=== PATIENT | female | born 1930 | race Caucasian/White ===

== ENCOUNTER 2018-08-15 16:40 | Inpatient (IN) ==
[2018-08-15] MEDS: HydrALAZINE HCL 20 MG/ML VIAL IV PRN ×2 (18:07→20:35)
[2018-08-15 18:16] LABS: Basophils # (auto) 0.07 K/uL (0-0.2); Basophils % (auto) 0.7 %; Eosinophils # (auto) 2.01 K/uL (0-0.5); Hematocrit (blood only) 40.3 % (37-47); Hemoglobin 13.1 g/dL (12.0-16.0); Immature Granulocytes # (auto) 0.03 K/uL (0.00-0.02); Immature Granulocytes % (auto) 0.3 %; Lymphocytes # (auto) 2.04 K/uL (1.2-3.4); Lymphocytes % (auto) 20.3 %; Mean Corpuscular Hgb Conc 32.5 g/dL (32-36); Mean Corpuscular Volume 92.2 fL (80-100); Monocytes # (auto) 0.68 K/uL (0.11-0.59); Monocytes % (auto) 6.8 %; Neutrophils # (auto) 5.22 K/uL (1.4-6.5); Neutrophils % (auto) 51.9 %; Platelet Count 273 K/uL (130-400); RDW Coefficient of Variation 14.3 % (11.5-14.5); Red Blood Count 4.37 M/uL (4.2-5.4); White Blood Count 10.05 K/uL (4.8-10.8)
[2018-08-15 18:21] LABS: iSTAT Hemoglobin 13.9 g/dl (12.0-16.0); iSTAT Ionized Calcium 1.24 mmol/l (1.12-1.32); iSTAT Potassium 3.9 mEq/L (3.3-5.0)
[2018-08-15 18:21] LABS: Appearance Urine Clear (Clear); Bilirubin Urine Negative (Negative); Blood Urine Negative (Negative); Color Urine Yellow; Glucose Urine UA Negative (Negative); Ketones Urine Negative (Negative); Leukocyte Esterase Urine Negative (Negative); Nitrite Urine Negative (Negative); Protein Urine Negative (Negative); Specific Gravity Urine 1.017 (1.000-1.030); Urobilinogen Urine Negative (Negative)
[2018-08-15] MEDS ORDERED: OPTIRAY 320 125ml IV PRN (18:24)
[2018-08-15 18:25] LABS: INR 1.1 (0.9-1.1); Partial Thromboplastin Time 27.5 Seconds (21.0-31.0); Prothrombin Time 10.9 Seconds (9.0-12.0)
[2018-08-15 18:28] LABS: Alanine Aminotransferase 24 U/L (12-78); Albumin Level 3.3 gm/dl (3.4-5.0); Aspartate Aminotransferase 18 U/L (15-37); BUN Creatinine Ratio 23.9 (10-20); Blood Urea Nitrogen 23 mg/dl (7-18); Calcium 9.5 mg/dl (8.5-10.1); Carbon Dioxide 30 mmol/L (21-32); Chloride 101 mmol/L (98-107); Creatinine Clr Calc Pharmacy 40.4 ml/min; Est GFR (African American) 60.9; Est GFR (Non-African American) 52.5; Glucose 79 mg/dl (70-99); Potassium 3.8 mmol/L (3.5-5.1); Sodium 137 mmol/L (136-145)
[2018-08-15 18:33] LABS: Albumin Globulin Ratio 0.7 (0.9-2); Alkaline Phosphatase 95 U/L (45-117); Bilirubin,Total 0.7 mg/dl (0.2-1); Creatine Kinase MB 3.6 ng/ml (0.5-3.6); Globulin 4.8 gm/dl (2.5-4.0); Total Protein 8.1 gm/dl (6.4-8.2); Troponin I < 0.015 ng/ml (0-0.045)
--- NOTE | 2018-08-15 18:34 | CT Scan Report ---
CT head/brain wo con CLINICAL HISTORY: 88 years-old Female with Stroke evaluation . Acute strokelike symptoms TECHNIQUE: Multiple axial CT images of the head were obtained without contrast. A dose lowering tech nique was utilized adhering to the principles of ALARA. CT DOSE: 638.56 mGycm COMPARISON: CT head 05/28/2014. FINDINGS: No acute intracranial hemorrhage, midline shift, intracranial mass, hydrocephalus, territorial ischem ia or abnormal extra-axial collection. Age-related involutional changes with moderate to extensive wh ite matter hypodensities suggestive of chronic microvascular ischemic changes. Mild encephalomalacia about the right gracia radiata and external capsule distribution is new from comparison suggesting re mote infarction. The calvarium is intact. Mastoid air cells are clear. Moderate to severe mucosal thickening about th e visualized left maxillary sinus with moderate mucosal thickening of the ethmoid air cells. Soft tis sues and orbits appear unremarkable. IMPRESSION: No acute intracranial abnormality. The above report was generated using voice recognition software. It may contain grammatical, syntax o r spelling errors. Electronically signed by: Ferny Montero M.D. 08/15/2018 6:32 PM
--- NOTE | 2018-08-15 18:42 | CT Scan Report ---
CT angio head w con CLINICAL HISTORY: 88 years-old Female with Pt c/o double vision. Acutely altered mental status COMPARISON STUDY: CT head of same day TECHNIQUE: Following the IV administration of 115 cc of Optiray 320, CT angiogram of the brain was pe rformed from the skull base to the vertex. Images are reviewed in the axial, sagittal, and coronal pl anes. 3-D MIPS images are created and assessed. IV contrast was administered without complication. A ll measurements were obtained according to NASCET criteria. A dose lowering technique was utilized ad ashtyn to the principles of ALARA. CT DOSE: 279.95 mGycm FINDINGS: CT ANGIOGRAM OF THE BRAIN: The imaged bilateral internal carotid arteries are patent. Moderate to severe calcified plaque about the cavernous, clinoid and supraclinoid segments. Additionally, calcified plaque about the left carot id terminus, image 46 series 2 results in approximately 60% luminal narrowing. The bilateral anterior and middle cerebral arteries are also patent. The vertebrobasilar system and posterior cerebral steven leyla are widely patent. Calcified plaque about the V4 segment left vertebral artery on image 12 serie s 2 results in less than 50% luminal narrowing. There is no aneurysm, high-grade stenosis, or proxima l branch occlusion identified. Dural sinuses appear patent. Paranasal sinus disease redemonstrated. IMPRESSION: 1. No aneurysm, dissection, or proximal branch occlusion. 2. Moderate to severe calcified plaque about the distal internal carotid arteries. Calcified plaque a t the left carotid terminus results in approximately 60% luminal narrowing. The above report was generated using voice recognition software. It may contain grammatical, syntax o r spelling errors. Electronically signed by: Ferny Montero M.D. 08/15/2018 6:41 PM
[2018-08-15] MEDS ORDERED: ASPIRIN CHEW 324 MG PO STA (19:02)
--- NOTE | 2018-08-15 20:26 | History & Physical Report ---
Date of Service August 15, 2018 Assessment & Plan (1) Confusion: Pt with hx stroke 2013, hx carotid stenosis, HTN, HLD. Earlier this morning around 4:30 AM patient with difficulty reading and comprehending which resolved and no recurrent symptoms. Hx echo: 08/2017: EF: 55-59%, grade 1 diastolic dysfunction, aortic valve mildly calcified, mild aortic valve stenosis, mild tricuspid regurgitation. History carotid Doppler 08/2017: Right carotid artery: 50-69% stenosis, left carotid artery: 69% stenosis In ER pt afebrile, P: 72, R: 18, BP: 223/98, 97% on RA. EKG: sinus rhythm. Negative troponin. Renal functions at baseline. CTA HEAD:. No aneurysm, dissection, or proximal branch occlusion. Moderate to severe calcified plaque about the distal internal carotid arteries. Calcified plaque at the left carotid terminus results in approximately 60% luminal narrowing. R/O TIA vs Stroke -Tele to monitor for arrhythmias -EKG in am -Trend troponin -Lipids, A1c in am -MRI brain -U/S carotids -Echo -aspiration precautions -PT/OT consult -continue statin, ASA -neurology consult, appreciate recommendations (2) Hypertensive urgency: Pt with hx HTN BP: 223/98 down to 178/91 in ER after hydralazine 10mg IV -hydralazine prn HTN -continue metoprolol (3) Hyperlipidemia: -lipid panel in am -continue statin (4) CKD (chronic kidney disease), stage III: Cr: 0.9. Baseline Cr: ~1.2 -monitor renal functions -avoid nephrotoxic agents when possible DVT Prophylaxis -Heparin SQ Full Code as per discussion with pt and son Follows with Dr Arevalo for routine care Pt was seen with Dr Ramirez. See addendum History of Present Illness Chief Complaint: Confusion Primary Care Provider: Kaylynn Arevalo Pt is 88 y/o F with PMH HTN, dyslipidemia, CKD III, basal cell CA, carotid stenosis, CVA in 2013 presented to ER with c/o confusion this morning. Pt states wasn't able to sleep this morning and she woke up and started reading around 4:30 am. As she was reading had onset of trouble comprehending the words and reports wasn't able to read as it confused her. She states stopped and tried to rest and then tried reading again with same symptoms. Pt states she eventually fell asleep and woke up with resolution of symptoms. No further symptoms. She was by herself, so is unsure of any speech problems. She denies any WARE, blurred vision, diplopia, vision loss, dizziness, weakness, paresthesias. Pt states for past 1.5 weeks with non-productive cough, post nasal drip. She was taking Mucinex with some relief. Denies SOB, CP, fever/chills. Patient with reported history memory problems and last year started Namenda. Patient states stopped taking it. Patient admits has been missing medications over the past month or so secondary to illness and recent of her . Patient lives on lower [facility]. Son states that he has noticed some recent increased confusion with patient and her medications and is looking into having pt use a pill box and reports is willing to start helping pt with her medications. Denies diaphoresis, N/V/D/C, syncope, neck pain, CP, SOB, orthopnea, palpitations, sore throat, choking, otalgia, abdominal pain, paresthesias, extremity weakness, extremity edema, rashes, urinary symptoms. Hx echo: 08/2017: EF: 55-59%, grade 1 diastolic dysfunction, aortic valve mildly calcified, mild aortic valve stenosis, mild tricuspid regurgitation. History carotid Doppler 08/2017: Right carotid artery: 50-69% stenosis, left carotid artery: 69% stenosis Allergies Allergy/AdvReac Type Severity Reaction Status Date / Time No Known Allergies Allergy Unverified 08/15/18 18:11 Home Medications Home Medications Medication Instructions Recorded Confirmed Type aspirin [Aspirin Low Dose] 81 mg PO BID 08/15/18 08/15/18 History calcium carbonate-vitamin D3 1 tab PO DAILY 08/15/18 08/15/18 History [Calcium 600 + D(3)] lovastatin 40 mg PO QPM 08/15/18 08/15/18 History metoprolol succinate 25 mg PO QAM 08/15/18 08/15/18 History Past Med/Surg History Medical History Basal cell carcinoma (Resolved) Lyme disease (Resolved) CKD (chronic kidney disease), stage III (Chronic) HTN (hypertension) (Chronic) Carotid bruit (Chronic) Hyperlipidemia (Chronic) Carotid stenosis, bilateral (Chronic) Stroke (Chronic 05/29/14) Hx TIA/stroke w/o resid Headache (Resolved) Social History Preferred Language: [place] Communication Ability: Impaired Communication Ability Comment: [place], does not have h/a Furnace Tender Required: No Beliefs That Will Affect Care: Scientology marital status: / Current Living Situation: Family Current Living Situation Comment: alone in-law suite in son's home ([place]) current occupational status: retired Other Information That Helps Us Care for You: No Feels Safe at Home: Yes Safety Concerns: Feels Safe At This Time Smoking Status: Never smoker Hx Alcohol Use: Yes Hx Substance Use: No Review of Systems All systems reviewed & are unremarkable except as noted in HPI & below Physical Exam Vital Signs (Past 24 Hours): Last Vital Signs Temp 36.5 C 08/15/18 16:45 Pulse 75 08/15/18 19:53 Resp 24 08/15/18 19:53 BP 178/91 H 08/15/18 19:53 Pulse Ox 96 08/15/18 19:53 Physical Exam: General: no distress, WDWN Head: normocephalic, atraumatic Eyes: PERRL, EOM's intact, conjunctiva non-injected, anicteric ENT: normal inspection external ears, nose, mucous membranes moist Neck: supple, trachea midline Lungs: clear, no respiratory distress, no wheezing/rhonchi/rales CV: RRR, no murmur, no JVD, no pretibial edema Abd: normal BS, soft, non-tender Ext: no cyanosis, no calf tenderness Neuro: A&O to person, place, year, no focal deficits noted, tongue midline, no pronator drift, strength equal bilaterally, normal affect Skin: warm, dry Results & Data Laboratory Results Short CBC 08/15/18 Range/Units 17:55 WBC 10.05 (4.8-10.8) K/uL Hgb 13.1 (12.0-16.0) g/dL Hct 40.3 (37-47) % Plt Count 273 (130-400) K/uL BMP 08/15/18 17:55 Sodium 137 Potassium 3.8 Chloride 101 Carbon Dioxide 30 BUN 23 H Creatinine 0.97 Glucose 79 Calcium 9.5 Cardiac Enzymes 08/15/18 Range/Units 17:55 CK-MB (CK-2) 3.6 (0.5-3.6) ng/ml Troponin I < 0.015 (0-0.045) ng/ml Liver Function 08/15/18 Range/Units 17:55 Total Bilirubin 0.7 (0.2-1) mg/dl AST 18 (15-37) U/L ALT 24 (12-78) U/L Alkaline Phosphatase 95 (45-117) U/L Albumin 3.3 L (3.4-5.0) gm/dl Urine 08/15/18 Range/Units 17:55 Urine Color Yellow Urine Appearance Clear (Clear) Urine pH 7.0 (4.5-7.5) Ur Specific [place] 1.017 (1.000-1.030) Urine Protein Negative (Negative) Urine Glucose (UA) Negative (Negative) Diagnostic Findings CT HEAD: IMPRESSION: No acute intracranial abnormality. CTA HEAD: IMPRESSION: 1. No aneurysm, dissection, or proximal branch occlusion. 2. Moderate to severe calcified plaque about the distal internal carotid arteries. Calcified plaque at the left carotid terminus results in approximately 60% luminal narrowing. ECG Rate (beats per minute): 60 Rhythm: normal sinus Supervising Physician Co-Signing Physician Notes Attending Addendum: The patient was seen and examined She is an 88 y/o F with PMH HTN, dyslipidemia, CKD III, basal cell CA, carotid stenosis, CVA in 2013 presented to ER with c/o confusion this morning. 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
--- NOTE | 2018-08-15 22:47 | XRay Report ---
XR chest 2V routine HISTORY: 88 years-old Female cough acute cough COMPARISON: None available TECHNIQUE: AP and lateral views of the chest FINDINGS: Cardiac silhouette is enlarged. Mitral annular calcifications and aortic calcifications are noted. Th ere is no pneumothorax or large pleural effusion. No overt pulmonary edema. Mild interstitial coarsen ing with mild hyperinflation. 7 mm nodular opacity projects over the right upper lung. Degenerative c hanges of the shoulders and spine. IMPRESSION: 1. Cardiomegaly without overt pulmonary edema. 2. Hyperinflation with mild interstitial coarsening, possibly chronic. 3. No focal airspace consolidation typical for pneumonia. 4. 7 mm indeterminate nodular focus of the right upper lung. This finding could be correlated with a nonemergent CT of the chest to further evaluate. The above report was generated using voice recognition software. It may contain grammatical, syntax o r spelling errors. Electronically signed by: Ferny Montero M.D. 08/15/2018 10:46 PM
[2018-08-15] MEDS ORDERED: HydrALAZINE HCL 20 MG/ML VIAL IV PRN (23:04)
[2018-08-15] MEDS ORDERED: ACETAMINOPHEN 325 MG TAB PO PRN (23:04)
[2018-08-15] MEDS ORDERED: PHARMACIST DISCHARGE MED REC CONSULT PRN (23:04)
[2018-08-16] MEDS: HEPARIN SOD 5,000 UNIT/0.5 ML VIAL SQ SCH ×3 (00:09→21:08)
[2018-08-16] MEDS: LOVASTATIN 20 MG TAB PO SCH ×2 (00:09→21:09)
--- NOTE | 2018-08-16 06:25 | Ultrasound Report ---
US carotid doppler BI HISTORY: Mental status change ?TIA COMPARISON: 05/30/2014 TECHNIQUE: Real-time, grayscale, and color Doppler sonography of the carotid arteries was performed. Imaging reviewed in the transverse and longitudinal planes. All measurements were calculated based on NASCET criteria. FINDINGS: Antegrade flow is seen in the bilateral vertebral arteries. The brachial pressures are hemodynamically similar. Extensive plaque formation bilaterally. The peak systolic velocity within the right ICA is 167. The right systolic ratio is 1.6. The peak systolic velocity within the left ICA is D 69. The left systolic ratio is 3.1. IMPRESSION: 1. 70-80% stenosis of the carotid bifurcations bilaterally. 2. 60-70% stenosis origin left internal carotid artery. 3. 50-60% stenosis right internal carotid artery at its origin. 4. These findings are mildly progressive from the prior study. The above report was generated using voice recognition software. It may contain grammatical, syntax or spelling errors. Electronically signed by: Andrea Garland M.D. 08/16/2018 6:24 AM
[2018-08-16 06:51] LABS: Basophils # (auto) 0.07 K/uL (0-0.2); Basophils % (auto) 0.8 %; Eosinophils % (auto) 24.9 %; Hematocrit (blood only) 39.1 % (37-47); Hemoglobin 12.6 g/dL (12.0-16.0); Immature Granulocytes # (auto) 0.03 K/uL (0.00-0.02); Immature Granulocytes % (auto) 0.3 %; Lymphocytes # (auto) 1.88 K/uL (1.2-3.4); Lymphocytes % (auto) 21.3 %; Mean Corpuscular Hgb Conc 32.2 g/dL (32-36); Mean Corpuscular Volume 91.8 fL (80-100); Mean Platelet Volume 10.7 fL (7.4-10.4); Monocytes # (auto) 0.81 K/uL (0.11-0.59); Monocytes % (auto) 9.2 %; Neutrophils # (auto) 3.85 K/uL (1.4-6.5); Neutrophils % (auto) 43.5 %; Platelet Count 241 K/uL (130-400); RDW Coefficient of Variation 14.5 % (11.5-14.5); Red Blood Count 4.26 M/uL (4.2-5.4); White Blood Count 8.84 K/uL (4.8-10.8)
[2018-08-16 07:11] LABS: Estimated Average Glucose 131 mg/dl; Hemoglobin A1C 6.2 % (4.5-5.6)
[2018-08-16 07:32] LABS: BUN Creatinine Ratio 19.8 (10-20); Calcium 8.8 mg/dl (8.5-10.1); Creatinine Clr Calc Pharmacy 40.8 ml/min; Est GFR (African American) 62.4; Est GFR (Non-African American) 53.9; Potassium 3.7 mmol/L (3.5-5.1)
[2018-08-16] MEDS: METOPROLOL SUCC 25MG EXT REL TAB PO SCH (08:09)
[2018-08-16] MEDS: ASPIRIN 81 MG ECTAB PO SCH (08:09)
--- NOTE | 2018-08-16 10:07 | Progress Note ---
DATE: 08/16/2018 REASON FOR CONSULTATION: Possible transient ischemic attack. HISTORY OF PRESENT ILLNESS: An 88-year-old right-handed female with a history of hypertension, dyslipidemia, chronic kidney disease, basal cell carcinoma, carotid stenosis, left frontal stroke in 2013, presented to the ER on the morning of admission. She was unable to sleep overnight, woke up and started to reach, she found that, although she was awake and alert and could see and her vision was not distorted, she could not read the written word. She had difficulty comprehending it. She stopped to pray for several minutes and it resolved. Upon awakening in the morning, she noted the symptoms to her children who brought her into the hospital. She absolutely denied any other symptoms. There was no headache. There was no scintillating visual phenomenon or field cut. No facial or limb anesthesia. No speech or language dysfunction. She had no chest pain, palpitation, shortness of breath. Many of her family members have had a low-level cough for several weeks. She has reported the same. Remotely, the patient had been on Namenda. None of her medicines recently were new or changed in dose. Her within the last several weeks, so she has been under significant stressors. There is some report of some mild confusion, but not on the day of admission. Several weeks prior to the stroke, the patient fell after tripping on a piece of carpet. REVIEW OF SYSTEMS: As per primary care is reviewed. PAST MEDICAL HISTORY: As above. She has also had Lyme disease, carotid stenosis. PAST SURGICAL HISTORY: Basal cell carcinoma. SOCIAL HISTORY: Nonsmoker, nondrinker. She lives with her son. FAMILY HISTORY: There is no family history of stroke. HOME MEDICATIONS: Aspirin, calcium, lovastatin and metoprolol. LABORATORY DATA: White count 8.8, H and H 12.6/39.1, platelet count 241. PT 10.9, PTT 27.5. Chemistry profile notable for a BUN of 19, hemoglobin A1c of 6.2. LDL cholesterol 95. Urinalysis negative. Electrocardiogram normal sinus rhythm. Carotid ultrasound, 70-80% stenosis of the carotid bifurcations bilaterally, 60-70% in the origin of the left internal carotid, 50-69% of the right internal carotid. These are mildly progressive compared to a prior study. A CTA of the head shows moderate severe calcific plaque in the distal internal carotids, calcific plaque in the left carotid terminus results in approximately 60% luminal narrowing. CT of the neck was not performed. CT of the head shows white-matter hypodensities consistent with chronic microvascular changes. There is mild encephalomalacia of the right gracia radiata and external capsule distribution is new from comparison suggesting remote infarction. PHYSICAL EXAMINATION: VITAL SIGNS: Blood pressure 151/74, pulse 68, respirations 18, 36.9, O2 sat 95%. GENERAL: On exam, the patient is awake, alert, oriented x3. There is no right/left confusion. There is no alexia or agraphia. There is no aphasia. The patient follows a 3-step command. Memory is 3/3 at 3 minutes. HEART: There are no carotid bruits. No heart murmurs. Heart is regular. NEUROLOGIC: Pupils are equal. Optic nerves are grossly normal with normal jones, motility, facial symmetry, facial sensation. Speech and language are normal. Motor 5/5, no drift. Normal rapid alternating movement. Symmetric reflexes. Downgoing toes. [id number] and [id number] are normal. Her gait is very marginally shuffling, but appropriate for age. IMPRESSION: The patient with a history of prior left frontal infarction, now with what sounds like alexia which is localizes to the left hemisphere. This raises the question whether the left carotid stenosis could be symptomatic. PLAN: At present, add Plavix to aspirin. Optimize LDL, CTA of the head 24 hours after a CTA of the [place] of [place], MRI of the brain to see if we localize any ischemia to the left hemisphere. This is all ultimately important and determining whether or not the patient needs a left carotid endarterectomy. 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 The patient understands and I was able to answer all questions for her. I will see her in the morning.
[2018-08-16] MEDS ORDERED: OPTIRAY 320 125ml IV PRN (10:38)
--- NOTE | 2018-08-16 10:51 | CT Scan Report ---
CT angio neck with con HISTORY: Carotid stenosis assess degree of stenosis LIca, TECHNIQUE: Multiaxial CT angiography of the neck was performed 100 cc IV contrast: None. All measu rements were calculated based on NASCET criteria. Maximum intensity projection images were also obta ined. A dose lowering technique was utilized adhering to the principles of ALARA. COMPARISON STUDY: None. FINDINGS: The aortic arch and proximal great vessels are widely patent. Scattered plaque dimension o f the vertebral basilar system. No significant stenotic process. Extensive plaque formation of the ca rotid system bilaterally. 70-80% stenosis of the right carotid bifurcation. High-grade stenosis proxi mal right internal carotid artery. This is estimated at 85%. Dense calcification left carotid bifurcation. 80% stenosis left bifurcation. 85% stenosis origin left internal carotid artery. IMPRESSION: 1. 85% stenosis left internal carotid artery.. 2. 80% stenosis left carotid bifurcation. 3. 85% stenosis origin right internal carotid artery. 4. 80% stenosis right carotid bifurcation. 5. Incidental note is made of nodularity involving the pulmonary apices bilaterally combined with sup erior mediastinal adenopathy. 6. Additional moderate adenopathy involving the cervical chains bilaterally. 7. A neoplastic process must be considered with probable associated pathologic adenopathy. The above report was generated using voice recognition software. It may contain grammatical, syntax or spelling errors. Electronically signed by: Andrea Garland M.D. 08/16/2018 10:48 AM
[2018-08-16] MEDS ORDERED: GADOBUTROL 30ML VIAL IV PRN (11:20)
[2018-08-16] MEDS: CLOPIDOGREL BISULFATE 75 MG TAB PO SCH ×2 (11:42→11:52)
--- NOTE | 2018-08-16 11:42 | Magnetic Resonance Report ---
MR brain wo/w con CLINICAL HISTORY: ?TIA mental status change COMPARISON STUDY: 05/29/2014. TECHNIQUE: Utilizing a 1.5 Funmilayo magnet and dedicated coil, multiplanar, multiecho imaging of the br ain was performed pre and postcontrast administration. IV administration of 8.5 mL of Gadavist contr ast was uneventful. FINDINGS: Diffusion-weighted images are negative for an acute ischemic event. Examination otherwise c onfirms generalized cerebellar as well as cerebral atrophy. Moderate chronic small vessel changes francine ntified throughout. The ventricular system is midline. Postcontrast images confirm the presence of a meningioma superior to the right central cribriform plate. This measures 2.0 x 1.2 cm in maximum dimension. There is no s ignificant vasogenic edema. There are findings of left maxillary and ethmoid sinusitis. There is uniform enhancement of the meningioma. No additional foci of enhancement are seen. IMPRESSION: 1. No evidence for an acute ischemic event. 2. Atrophy and considerable chronic small vessel change. 3. Right central meningioma immediately superior to the cribriform plate measuring 2.0 x 1.2 cm. 4. Left maxillary and ethmoid sinusitis. The above report was generated using voice recognition software. It may contain grammatical, syntax or spelling errors. Electronically signed by: Andrea Garland M.D. 08/16/2018 11:41 AM
--- NOTE | 2018-08-16 15:07 | Hospitalist Progress Note ---
Date of Service August 16, 2018 Assessment & Plan (1) Confusion: Stroke like symptoms: H/O CVA in 2014 H/O carotid stenosis --MRI Brain: No evidence for an acute ischemic event. Atrophy and considerable chronic small vessel change. Right central meningioma immediately superior to the cribriform plate measuring 2.0 x 1.2 cm. Left maxillary and ethmoid sinusitis. --Neck CTA: 85% stenosis left internal carotid artery. 80% stenosis left carotid bifurcation. 85% stenosis origin right internal carotid artery. 80% stenosis right carotid bifurcation. Incidental note is made of nodularity involving the pulmonary apices bilaterally combined with superior mediastinal adenopathy. Additional moderate adenopathy involving the cervical chains bilaterally. A neoplastic process must be considered with probable associated pathologic adenopathy. --Head CTA: No aneurysm, dissection, or proximal branch occlusion. Moderate to severe calcified plaque about the distal internal carotid arteries. Calcified plaque at the left carotid terminus results in approximately 60% luminal narrowing. --ECHO: EF: 65-70%; base posterior wall mildly hypokinetic, Mild , Mild TR -- Continue Aspirin, statin --Plavix added-- Patient would like to discuss with family prior to taking it --May need endarterectomy --Appreciate Neurology Input --PT/OT, Specch eval Meningioma Mediastinal and Cervical Adenopathy Incidental findings on CT Check CT abd/Chest Needs biopsy to confirm Consider Oncology Consult Inpatient Vs Outpatient Wall motion abnormality on ECHO: Patient denies any chest pain/discomfort, SOB Initial Troponin Negative Trend Troponin Repeat EKG in AM Will discuss with Cardiology (2) Hypertensive urgency: BP improved continue metoprolol Hydralazine PRN (3) Hyperlipidemia: continue statin (4) CKD (chronic kidney disease), stage III: Baseline Cr: ~1.2 monitor renal functions avoid nephrotoxic agents when possible DVT Px: Heparin SQ Code Status Full Code Subjective Patient is seen and examined at bedside States having mild headache after returning from MRI Denies any change in vision, dizziness, chest pain, SOB, abd pain Patient has been refusing plavix No other complaints Physical Exam Vital Signs (Past 24 Hours): Last Vital Signs Temp 36.9 C 08/16/18 06:55 Pulse 64 08/16/18 08:00 Resp 18 08/16/18 06:55 BP 151/74 H 08/16/18 06:55 Pulse Ox 95 08/16/18 06:55 Physical Exam: Physical Exam: Vitals signs as noted above General Appearance:Moderately built and nourished, no apparent distress Head: normocephalic, Atraumatic Eyes: normal inspection, EOMI Neck: supple, Trachea midline Respiratory/Chest: Normal breath sounds, CTA Cardiovascular: S1, S2, + murmur Abdomen/GI:Soft, Non tender, Bowel sounds present Extremities/Musculoskelatal:normal inspection, no edema Neurologic/Psych:AAOX3, grossly no focal neurological deficits Skin: normal color, warm Results & Data Laboratory Results Short CBC 08/15/18 08/16/18 Range/Units 17:55 06:35 WBC 10.05 8.84 (4.8-10.8) K/uL Hgb 13.1 12.6 (12.0-16.0) g/dL Hct 40.3 39.1 (37-47) % Plt Count 273 241 (130-400) K/uL BMP 08/15/18 08/16/18 17:55 06:35 Sodium 137 139 Potassium 3.8 3.7 Chloride 101 105 Carbon Dioxide 30 28 BUN 23 H 19 H Creatinine 0.97 0.95 Glucose 79 92 Calcium 9.5 8.8 Cardiac Enzymes 08/15/18 Range/Units 17:55 CK-MB (CK-2) 3.6 (0.5-3.6) ng/ml Troponin I < 0.015 (0-0.045) ng/ml Liver Function 08/15/18 Range/Units 17:55 Total Bilirubin 0.7 (0.2-1) mg/dl AST 18 (15-37) U/L ALT 24 (12-78) U/L Alkaline Phosphatase 95 (45-117) U/L Albumin 3.3 L (3.4-5.0) gm/dl Urine 08/15/18 Range/Units 17:55 Urine Color Yellow Urine Appearance Clear (Clear) Urine pH 7.0 (4.5-7.5) Ur Specific Randolph 1.017 (1.000-1.030) Urine Protein Negative (Negative) Urine Glucose (UA) Negative (Negative)
[2018-08-16] MEDS: SODIUM CHLORIDE 0.9% 1000ML 1,000 ML IV SCH (17:19)
[2018-08-17 06:26] LABS: Basophils # (auto) 0.08 K/uL (0-0.2); Basophils % (auto) 0.9 %; Eosinophils # (auto) 2.33 K/uL (0-0.5); Eosinophils % (auto) 26.6 %; Hematocrit (blood only) 37.7 % (37-47); Hemoglobin 12.1 g/dL (12.0-16.0); Immature Granulocytes # (auto) 0.02 K/uL (0.00-0.02); Immature Granulocytes % (auto) 0.2 %; Lymphocytes # (auto) 2.42 K/uL (1.2-3.4); Lymphocytes % (auto) 27.6 %; Mean Corpuscular Hgb Conc 32.1 g/dL (32-36); Mean Corpuscular Volume 91.5 fL (80-100); Mean Platelet Volume 10.9 fL (7.4-10.4); Monocytes # (auto) 0.86 K/uL (0.11-0.59); Monocytes % (auto) 9.8 %; Neutrophils # (auto) 3.06 K/uL (1.4-6.5); Neutrophils % (auto) 34.9 %; Platelet Count 249 K/uL (130-400); RDW Coefficient of Variation 14.4 % (11.5-14.5); RDW Standard Deviation 48.5 fL (36.4-46.3); Red Blood Count 4.12 M/uL (4.2-5.4); White Blood Count 8.77 K/uL (4.8-10.8)
[2018-08-17 07:10] LABS: BUN Creatinine Ratio 23.9 (10-20); Calcium 8.8 mg/dl (8.5-10.1); Creatinine Clr Calc Pharmacy 44.3 ml/min; Est GFR (African American) 69.4; Est GFR (Non-African American) 59.9; Potassium 3.7 mmol/L (3.5-5.1)
[2018-08-17 07:15] LABS: Troponin I 0.02 ng/ml (0-0.045)
[2018-08-17] MEDS: CLOPIDOGREL BISULFATE 75 MG TAB PO SCH (08:07)
[2018-08-17] MEDS: ASPIRIN 81 MG ECTAB PO SCH (08:07)
[2018-08-17] MEDS: METOPROLOL SUCC 25MG EXT REL TAB PO SCH (08:07)
[2018-08-17] MEDS: HEPARIN SOD 5,000 UNIT/0.5 ML VIAL SQ SCH ×2 (08:08→20:44)
--- NOTE | 2018-08-17 08:42 | Cardiology Consultation ---
Date of Consultation August 17, 2018 Assessment & Plan (1) Chronic ischemic heart disease: Resting 2D transthoracic echocardiogram demonstrates a small basal posterior wall motion abnormality consistent with underlying ischemic heart disease. Her ejection fraction is preserved. No signs/symptoms of congestive heart failure. When prior 2D echocardiogram reviewed from 2013 there is no significant change. Patient notes chronic dyspnea on exertion without chest discomfort. Function capacity unchanged. Medical management recommended at this time. Continue beta-lorena. Lovastatin will be transitioned to high intensity statin therapy, atorvastatin 40 mg daily. Consider addition of RAYMUNDO inhibitor. Outpatient pharmacologic stress testing recommended for further risk stratification if patient planning carotid endarterectomy. (2) Confusion: Symptoms have resolved. Possible TIA vs. hypertensive urgency on admission. Blood pressure improved now within acceptable range. Appreciate neurology input. Further evaluation as per internal medicine and neurology. (3) Carotid stenosis, bilateral: Consider vascular surgeon consultation. (4) HTN (hypertension): Currently controlled. (5) Dyslipidemia, goal LDL below 100: Discontinue lovastatin in favor of high intensity statin therapy, atorvastatin 40 mg daily. (6) Cervical adenopathy: Internal medicine physician currently discussing results with oncology. (7) Aortic stenosis, mild: History of Present Illness Reason for Consultation: Abnormal resting 2D transthoracic echocardiogram suggesting basal posterior hypokinesis. Requesting Physician: Dr. Fabian Attending Physician: Arden Fabian MD History of Present Illness 88-year-old female presents with symptoms consistent with TIA. Patient developed cognitive difficulties yesterday. Unable to understand writing in the newspaper. Came to the ER for further evaluation. Initial testing demonstrates moderate to severe ( 80-85%)left internal carotid artery stenosis with moderate (80%) right internal carotid artery stenosis. A resting 2D transthoracic echocardiogram was performed demonstrating mild basal posterior hypokinesis. Patient denies chest discomfort. Notes chronic dyspnea on exertion for several years. Ambulates with use of a cane. No change in functional capacity recently. Carries a history of prior CVA. Most recent lipid panel demonstrates uncontrolled LDL 9159mg/dL). Taking lovastatin for years. No history of prior statin intolerance. Today the patient is feeling well. Denies focal weakness, slurred speech, visual changes, or cognitive difficulties. Family present at bedside. Patient denies orthopnea, PND, lower semi-edema, or claudication. Tolerating diet and medications. Offers no other concerns/complaints at this time. No dysrhythmias on telemetry. Allergies Allergy/AdvReac Type Severity Reaction Status Date / Time No Known Allergies Allergy Unverified 08/15/18 18:11 Home Medications Home Medications Medication Instructions Recorded Confirmed Type aspirin [Aspirin Low Dose] 81 mg PO BID 08/15/18 08/15/18 History calcium carbonate-vitamin D3 1 tab PO DAILY 08/15/18 08/15/18 History [Calcium 600 + D(3)] lovastatin 40 mg PO QPM 08/15/18 08/15/18 History metoprolol succinate 25 mg PO QAM 08/15/18 08/15/18 History Patient History Medical History Basal cell carcinoma (Resolved) Lyme disease (Resolved) CKD (chronic kidney disease), stage III (Chronic) HTN (hypertension) (Chronic) Carotid bruit (Chronic) Hyperlipidemia (Chronic) Carotid stenosis, bilateral (Chronic) Stroke (Chronic 05/29/14) Hx TIA/stroke w/o resid Headache (Resolved) Family History Other CAD (coronary artery disease) Social History Communication Ability: Effective Beliefs That Will Affect Care: Mandaeism marital status: / Current Living Situation: Family Current Living Situation Comment: alone in-law suite in son's home ([place]) current occupational status: retired Other Information That Helps Us Care for You: No Feels Safe at Home: Yes Safety Concerns: Feels Safe At This Time Smoking Status: Never smoker Hx Alcohol Use: Yes Hx Substance Use: No Review of Systems Pertinent positives noted per HPI, conference of 10 system review otherwise negative. Physical Exam Vital Signs (Past 24 Hours): Last Vital Signs Temp 36.5 C 08/17/18 07:58 Pulse 61 08/17/18 07:58 Resp 21 08/17/18 04:00 BP 152/67 H 08/17/18 07:58 Pulse Ox 97 08/17/18 07:58 Physical Exam: General: NAD, AAO x3, well nourished. Obese. HEENT: Normocephalic. Atraumatic. Conjunctiva pink, no scleral icterus. Neck:2/4 B/L carotid bruits, the carotid upstrokes are brisk. No JVD. No HJR Heart: Regular normal S-1 and S-2 no S-3 or S-4 gallop. 2/6 low pitched mid peaking systolic ejection murmur heard best at the right second intercostal space. PMI is not displaced. No RV heave. Lungs: Clear bilateral without rales , rhonchi, or wheeze. Abdomen: Normal bowel sounds. Mildly distended. Nontender. No masses or organomegaly. No abdominal bruits. Extremities: 1-2+ bilateral pedal and pretibial edema. No clubbing, cyanosis. Pulses: radial=2/4, Dorsalis pedis =2/4 , posterior tibial=2/4. Neuro: Cranial nerves grossly intact. No focal motor deficit.
[2018-08-17] MEDS: ATORVASTATIN 40 MG TAB PO SCH (09:37)
[2018-08-17] MEDS ORDERED: IOVERSOL 100ml IV PRN (11:09)
[2018-08-17] MEDS: SODIUM CHLORIDE 0.9% 1000ML 1,000 ML IV SCH (12:04)
--- NOTE | 2018-08-17 12:16 | Progress Note ---
DATE: 08/17/2018 SUBJECTIVE: Mrs. Daigle has not had any recurrent events overnight and generally feels well. OBJECTIVE: VITAL SIGNS: Examination, 152/67, 70, respirations 21, 36.5. GENERAL: She is awake and alert. NEUROLOGIC: There is normal speech and language. Normal visual jones, facial symmetry and symmetric upper and lower extremity strength. DATABASE: MRI of the brain shows no acute infarct. There are atrophy and considerable small vessel ischemic changes. There is a meningioma superior to the cribriform plate measuring 2.0 x 1.2 cm. It was not compared to a prior study of 2014, although I do not recall that was done with contrast. Carotid Doppler suggests a 70% stenosis of the carotids bilaterally, carotid bifurcations 70-80%, 60-70 at the origin of the left internal carotid, 50-60 at the origin of the right internal carotid. CTA of the neck showed 85% stenosis of the left internal carotid, 80% stenosis of the left carotid bifurcation, 85% stenosis at the origin of the right internal, 80% stenosis of the right carotid bifurcation. There is incidental finding of some mediastinal adenopathy as well as adenopathy in the cervical chains. CTA shows calcific plaque of the V4 segment of the left vertebral, resulting in less than 50% narrowing. No aneurysm or high-grade stenosis. The patient's EKG is a sinus rhythm. Echocardiogram showing the base posterior wall is mildly hypokinetic. There is mild enlargement of the left atrium. The labs of note include an LDL of 95. IMPRESSION: This patient had an episode of impaired reading lasting several minutes. This could be alexia. Alexia localizes to the dominant left posterior cerebral artery. However, her symptoms were vague and I think we cannot entirely localize to the left TELEPHONE MECHANIC based on her vague symptoms. Therefore, it is difficult to know if she is symptomatic for carotid stenosis or not. The TELEPHONE MECHANIC is a posterior circulation vessel and she does not have a origin, i.e., the TELEPHONE MECHANIC originates from the posterior circulation rather than the anterior circulation. It is therefore difficult to know if she is symptomatic for what appears to be fairly high-grade bilateral internal carotid stenosis. I would recommend aspirin and Plavix. I have discussed Plavix with the patient and she is in agreement at this point. Ongoing cardiac monitoring with a Zio patch since we cannot reliably localize the process, to rule out atrial fibrillation, vascular surgery consult knowing that this may be asymptomatic, but higher grade carotid stenosis. Whether or not she would be a surgical candidate will depend on the results of her CT of the chest and her cardiovascular risk factors. The patient has an asymptomatic cribriform plate meningioma, recommend followup MRI in 6 months and then yearly if stable, this is not the etiology of her symptoms. I discussed this with her son at length. We will follow him. HEMANTH
--- NOTE | 2018-08-17 13:52 | CT Scan Report ---
CHEST CT WITH CONTRAST; CT ABDOMEN/PELVIS WITH IV CONTRAST ONLY: CT DOSE: 547.89 mGy.cm HISTORY: Adenopathy of the cervical chains incidentally noted on comparison study. Today's study is a screening exam for possible malignancy. R/O Malignancy TECHNIQUE: Multiaxial CT images of the chest, abdomen and pelvis were performed following the intrave nous administration of contrast. A dose lowering technique was utilized adhering to the principles o f ALARA. COMPARISON: CTA neck 08/16/2018. FINDINGS: CT CHEST: The study is motion degraded. Thyroid is homogeneous. Mildly enlarged left axillary lymph node measur es 11 mm in short axis. Enlarged mediastinal and hilar lymph nodes include subcarinal adenopathy ludy uring up to 2.3 x 1.4 cm. Enlarged right hilar lymph nodes measure up to 2.3 x 1.4 cm. Left hilar lym ph nodes measure up to 1.4 x 2.2 cm. Heart is upper limits of normal in size without pericardial effu fabio. Coronary arterial, mitral and aortic annular calcifications are noted. Extensive mixed plaque f ormation about the thoracic aorta without aneurysm or dissection. Mixed plaque formation at the origi n of the right subclavian artery results in high-grade stenosis, image 59 series 4. The opacified pul monary arterial tree appears unremarkable. Respiratory motion limits evaluation of the lung parenchyma. Mild bilateral intralobular septal thick ening with bilateral bronchial wall thickening. Linear consolidation, patchy and linear consolidation about the left lung base, noted within the basal left lower lobe. Upper lung zone predominant irregu lar pulmonary nodules measure up to 8 mm. Biapical pleural-parenchymal scarring with pleural calcific ations. Mild bibasilar mucous plugging. Breast parenchyma and soft tissues are within normal limits. Degenerative changes of the shoulders an d spine. No suspicious lytic or blastic bony lesions identified. CT ABDOMEN/PELVIS: The study is motion degraded. No pneumatosis or pneumoperitoneum. Mildly contracted gallbladder. The liver, spleen, pancreas and adrenal glands appear unremarkable. Suggested cyst noted about the right kidney. No renal or ureteral calculi. Circumferential wall thickening of the bladder with partial dis tention. Uterus and adnexa demonstrate no acute abnormality. Extensive calcification about the abdomi nal aorta without aneurysm. Mildly enlarged bilateral iliac chain lymph nodes measure up to 10 mm. Nonspecific mild wall thickening about the distal esophagus. No bowel obstruction. Colonic diverticul osis without acute diverticulitis. Appendix appears normal. Diastases recti with small fat filled per iumbilical hernia, 1.3 cm diastases. Soft tissues are otherwise unremarkable. The bones demonstrate n o suspicious lytic or blastic bone lesions identified. Multilevel spondylitic spurring with facet art hropathy. Sclerotic lesion of the right pubic bone suggests bone island. Grade 1 anterolisthesis L4 o n L5, likely degenerative. Mild lumbar levoscoliosis. IMPRESSION: 1. Multiple enlarged lymph nodes about the chest, predominately in the mediastinal and hilar distribu tions, in addition to prominent periaortic and mildly enlarged iliac chain lymph nodes are concerning for underlying lymphoproliferative disorder. 2. Multiple irregular subcentimeter pulmonary nodules within an upper lung zone predominant distribut ion measuring up to approximately 8 mm are noted in addition to patchy left basilar consolidation and mild bilateral bronchial wall thickening. These findings are suggestive of an infectious or inflamma tory pneumonitis with metastatic disease not excluded. Attention at follow-up recommended. 3. No bowel obstruction or focal bowel wall thickening. 4. 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 5. Additional findings as above. Dictated: 08/17/2018 11:25 AM Transcribed: 08/17/2018 1:52 PM Courtney [id number] [id number] Electronically signed by: Ferny Montero M.D. 08/17/2018 1:59 PM
--- NOTE | 2018-08-17 14:13 | Hospitalist Progress Note ---
Date of Service August 17, 2018 Assessment & Plan (1) Confusion: Stroke like symptoms: Possible Alexia or 2/2 Carotid.A stenosis H/O CVA in 2013 H/O carotid stenosis --MRI Brain: No evidence for an acute ischemic event. Atrophy and considerable chronic small vessel change. Right central meningioma immediately superior to the cribriform plate measuring 2.0 x 1.2 cm. Left maxillary and ethmoid sinusitis. --Neck CTA: 85% stenosis left internal carotid artery. 80% stenosis left carotid bifurcation. 85% stenosis origin right internal carotid artery. 80% stenosis right carotid bifurcation. Incidental note is made of nodularity involving the pulmonary apices bilaterally combined with superior mediastinal adenopathy. Additional moderate adenopathy involving the cervical chains bilaterally. A neoplastic process must be considered with probable associated pathologic adenopathy. --Head CTA: No aneurysm, dissection, or proximal branch occlusion. Moderate to severe calcified plaque about the distal internal carotid arteries. Calcified plaque at the left carotid terminus results in approximately 60% luminal narrowing. --ECHO: EF: 65-70%; base posterior wall mildly hypokinetic, Mild , Mild TR -- Continue Aspirin, statin --Plavix added-- Patient refused --May need endarterectomy --Appreciate Neurology Input --PT/OT --Consulted Vascular Surgery for input Meningioma Mediastinal and Cervical Adenopathy Incidental findings on CT --CT chest/Abd:Multiple enlarged lymph nodes about the chest, predominately in the mediastinal and hilar distributions, in addition to prominent periaortic and mildly enlarged iliac chain lymph nodes are concerning for underlying lymphoproliferative disorder. Multiple irregular subcentimeter pulmonary nodules within an upper lung zone predominant distribution measuring up to approximately 8 mm are noted in addition to patchy left basilar consolidation and mild bilateral bronchial wall thickening. These findings are suggestive of an infectious or inflammatory pneumonitis with metastatic disease not excluded. Attention at follow-up recommended. 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 --Needs biopsy to confirm --Consider Oncology Consult Inpatient Vs Outpatient --Needs repeat MRI brain in 6 months --Started on Doxycycline for possible pneumonitis Chronic Ischemic Heart disease: Wall motion abnormality noted on ECHO Patient denies any chest pain/discomfort, SOB Troponin Negative EKG:no acute signs of Ischemia Appreciate Cardiology Input Continue Aspirin, Beta Yue Lovastatin changed to lipitor (2) Hypertensive urgency: continue metoprolol Hydralazine PRN (3) Hyperlipidemia: continue statin (4) CKD (chronic kidney disease), stage III: Baseline Cr: ~1.2 monitor renal functions avoid nephrotoxic agents when possible DVT Px: Heparin SQ Code Status Full Code Subjective Patient is seen and examined at bedside Feels better today Denies any recurrence of confusion, weakness, change in vision Also denies chest pain, SOB, dizziness No other complaints Discussed with family in detail Physical Exam Vital Signs (Past 24 Hours): Last Vital Signs Temp 36.5 C 08/17/18 07:58 Pulse 70 08/17/18 08:00 Resp 21 08/17/18 04:00 BP 152/67 H 08/17/18 07:58 Pulse Ox 97 08/17/18 07:58 Physical Exam: Physical Exam: Vitals signs as noted above General Appearance:Moderately built and nourished, no apparent distress Head: normocephalic, Atraumatic Eyes: normal inspection, EOMI Neck: supple, Trachea midline Respiratory/Chest: Normal breath sounds, CTA Cardiovascular: S1, S2, + murmur Abdomen/GI:Soft, Non tender, Bowel sounds present Extremities/Musculoskelatal:normal inspection, no edema Neurologic/Psych:AAOX3, grossly no focal neurological deficits Skin: normal color, warm
[2018-08-17] MEDS: DOXYCYCLINE HYCLATE 100 MG CAP PO SCH (16:14)
--- NOTE | 2018-08-18 01:16 | Emergency Department Note ---
Entered by Rosemarie Cole acting as a scribe for Dylan Verdin MD History of Present Illness General Chief complaint: TIA Symptoms Stated complaint: possible mini stroke Time Seen by Provider: 08/15/18 17:13 Source: patient and family History of Present Illness Onset (ago): hour(s) (12 hours ago) Location: head Pain Consistency: + other (episode) Quality: + other (stroke like symptoms) Associated symptoms: + denies other symptoms (difficulty walking) and + other (d ifficulty speaking, difficulty reading, congestion) The patient is an 88 year old female who presents to the Emergency Room with complaints of an episode of stroke like symptoms occurring 12 hours ago. The patient states that she has a history of TIAs and believes she has had another. She states that she was sleeping this morning and got up to read. She reports that when she started reading, she noticed suddenly that the words were jumbled and she couldn�t comprehend what she was reading. She states that she also noticed when she would try to speak it wouldn�t come out right. The patient states that she sat the book down and waited a few minutes before picking up the book and trying again. She states that this time everything seemed to have cleared up. The patient notes that she takes a baby Aspirin daily, but denies using any other blood thinners. The patient�s son notes that the patient has been taking cough syrup recently for congestion, but is unsure which one. The patient denies difficulty walking. Home Medications Home Medications Medication Instructions Recorded Confirmed Type aspirin [Aspirin Low Dose] 81 mg PO BID 08/15/18 08/15/18 History calcium carbonate-vitamin D3 1 tab PO DAILY 08/15/18 08/15/18 History [Calcium 600 + D(3)] lovastatin 40 mg PO QPM 08/15/18 08/15/18 History metoprolol succinate 25 mg PO QAM 08/15/18 08/15/18 History Allergies Allergy/AdvReac Type Severity Reaction Status Date / Time No Known Allergies Allergy Unverified 08/15/18 18:11 Past Med/Surg History Medical History Basal cell carcinoma (Resolved) Lyme disease (Resolved) CKD (chronic kidney disease), stage III (Chronic) HTN (hypertension) (Chronic) Carotid bruit (Chronic) Hyperlipidemia (Chronic) Carotid stenosis, bilateral (Chronic) Stroke (Chronic 05/29/14) Hx TIA/stroke w/o resid Headache (Resolved) Family History Other CAD (coronary artery disease) Social History Communication Ability: Effective Beliefs That Will Affect Care: Sabianism marital status: / Current Living Situation: Family Current Living Situation Comment: alone in-law suite in son's home ([place]) current occupational status: retired Other Information That Helps Us Care for You: No Feels Safe at Home: Yes Safety Concerns: Feels Safe At This Time Smoking Status: Never smoker Hx Alcohol Use: Yes Hx Substance Use: No Review of Systems See HPI for pertinent positives & negatives. and A total of 10 systems reviewed and were otherwise negative Physical Exam Vital Signs Vital Signs - 24 hr 08/17/18 01:43 08/17/18 04:00 08/17/18 07:58 Temperature 36.7 C 36.5 C Temperature Source Oral Oral Pulse Rate 68 Pulse Rate [Brachial] 69 61 Pulse Rate [Right Finger] Respiratory Rate 21 Blood Pressure [Left Arm] 125/63 Blood Pressure [Right Arm] 152/67 H Blood Pressure Mean [Left Arm] 83 Blood Pressure Mean [Right Arm] 95 Blood Pressure Position [Left Arm] Blood Pressure Position [Right Arm] Lying Pulse Oximetry 92 97 Oxygen Delivery Method Room Air 08/17/18 08:00 08/17/18 15:00 08/17/18 15:07 Temperature 36.6 C Temperature Source Oral Pulse Rate 70 83 Pulse Rate [Brachial] 73 Pulse Rate [Right Finger] Respiratory Rate 20 Blood Pressure [Left Arm] 193/83 H Blood Pressure [Right Arm] Blood Pressure Mean [Left Arm] 119 Blood Pressure Mean [Right Arm] Blood Pressure Position [Left Arm] Lying Blood Pressure Position [Right Arm] Pulse Oximetry 92 Oxygen Delivery Method Room Air 08/17/18 20:31 08/18/18 00:30 Temperature 36.8 C 36.8 C Temperature Source Oral Oral Pulse Rate Pulse Rate [Brachial] 80 Pulse Rate [Right Finger] 70 Respiratory Rate 18 20 Blood Pressure [Left Arm] Blood Pressure [Right Arm] 169/85 H 165/67 H Blood Pressure Mean [Left Arm] Blood Pressure Mean [Right Arm] 113 99 Blood Pressure Position [Left Arm] Blood Pressure Position [Right Arm] Left Lateral Pulse Oximetry 94 96 Oxygen Delivery Method Room Air Room Air GENERAL: Awake, alert, well-appearing, in no distress HENT: Normocephalic, atraumatic. Oropharynx unremarkable. EYES: Normal conjunctiva. Sclera non-icteric. NECK: Supple. No nuchal rigidity. FROM. No masses. RESPIRATORY: Clear to auscultation. No wheezes. No rales. Normal respiratory effort. CARDIAC: Normal rate. Normal rhythm. No murmurs. No rubs. Extremities warm and well perfused. Pulses equal. No JVD. GI: Soft, non-distended. No tenderness to palpation. No rebound or guarding. No masses. RECTAL: Deferred. MUSCULOSKELETAL: Atraumatic. Chest examination reveals no tenderness. The back is symmetrical on inspection without obvious abnormality. There is no CVA tenderness to palpation. No joint edema. LOWER EXTREMITIES: Calves are equal size bilaterally and non-tender. No edema. No discoloration. NEURO: Normal sensorium. No sensory or motor deficits noted. Course 1715: Past medical records reviewed. The patient was evaluated in room B12A, and a complete history and physical examination were performed. 1851: I reevaluated the patient and updated her on her test results. I discussed the treatment plan with her. She verbally agrees and understands. 1900: I reviewed the patient's case with Dr. Josiah Garnica. He will evaluate the patient for further management. Consultations Consultation #1: I reviewed the patient's case with Dr. Josiah Garnica. He will evaluate the patient for further management. Time: 19:01 Administered Medications Aspirin (Ecotrin Ectab) 81 mg PO [facility] Stop: 09/15/18 08:59 Last Admin: 08/17/18 08:07 Dose: 81 mg Documented by: [id number] Admin: 08/16/18 08:09 Dose: 81 mg Documented by: [id number] Atorvastatin Calcium (Lipitor) 40 mg PO [facility] Stop: 09/16/18 08:59 Last Admin: 08/17/18 09:37 Dose: 40 mg Documented by: [id number] Clopidogrel Bisulfate (Plavix) 75 mg PO [facility] Stop: 09/15/18 09:29 Last Admin: 08/17/18 08:07 Dose: Not Given Documented by: [id number] Admin: 08/16/18 11:52 Dose: Not Given Documented by: [id number] Doxycycline Hyclate (Vibramycin) [address] [facility] Stop: 08/24/18 15:59 Last Admin: 08/17/18 16:14 Dose: 100 mg Documented by: [id number] Gadobutrol (Gadavist 30ml) 7 ml IV ONCE PRN PRN Reason: Interaction Checking Stop: 08/20/18 11:19 Last Admin: 08/16/18 11:21 Dose: 7 ml Documented by: [id number] Heparin Sodium (Porcine) (Heparin Sodium (Porcine)) 5,[address] [facility] Stop: 09/14/18 23:03 Last Admin: 08/17/18 20:44 Dose: 5,000 units Documented by: [id number] Cosigned by: [id number] Admin: 08/17/18 08:08 Dose: 5,000 units Documented by: [id number] Cosigned by: [id number] Admin: 08/16/18 21:08 Dose: 5,000 units Documented by: [id number] Cosigned by: [id number] Admin: 08/16/18 08:09 Dose: 5,000 units Documented by: [id number] Cosigned by: [id number] Admin: 08/16/18 00:09 Dose: 5,000 units Documented by: [id number] Cosigned by: [id number] Ioversol (Optiray 320 125ml) 118 ml IV ONCE PRN PRN Reason: Interaction Checking Stop: 08/20/18 10:37 Last Admin: 08/16/18 10:39 Dose: 118 ml Documented by: [id number] Ioversol (Optiray 320 100ml) 93 ml IV ONCE PRN PRN Reason: Interaction Checking Stop: 08/21/18 11:08 Last Admin: 08/17/18 11:10 Dose: 93 ml Documented by: [id number] [facility] Su[facility] ([facility]l) [facility] Stop: 09/15/18 08:59 Last Admin: 08/17/18 08:07 Dose: 25 mg Documented by: [id number] Admin: 08/16/18 08:09 Dose: 25 mg Documented by: [id number] Discontinued Medications Aspirin (Aspirin) 324 mg PO NOW STA Stop: 08/15/18 19:03 Last Admin: 08/15/18 19:06 Dose: 324 mg Documented by: [id number] Hydralazine HCl (Hydralazine Hcl) 10 mg IV Q20M PRN PRN Reason: SBP above 185 or DBP above 110 Last Admin: 08/15/18 20:35 Dose: 10 mg Documented by: [id number] Admin: 08/15/18 18:07 Dose: 10 mg Documented by: [id number] Sodium Chloride (Nss 1000ml) 1,000 mls @ 50 mls/hr IV .Q20H [facility] Stop: 08/17/18 20:00 Last Admin: 08/17/18 12:04 Dose: 50 mls/hr Documented by: [id number] Infusion: 08/17/18 12:04 Dose: 50 mls/hr Documented by: [id number] Admin: 08/16/18 17:19 Dose: 50 mls/hr Documented by: [id number] Ioversol (Optiray 320 125ml) 115 ml IV ONCE PRN PRN Reason: Interaction Checking Stop: 08/19/18 18:23 Last Admin: 08/15/18 18:25 Dose: 115 ml Documented by: [id number] Lovastatin (Mevacor) 40 mg PO QPM [facility] Stop: 09/14/18 23:03 Last Admin: 08/16/18 21:09 Dose: 40 mg Documented by: [id number] Admin: 08/16/18 00:09 Dose: 40 mg Documented by: [id number] Medical Decision Making Differential Diagnosis Etiologies such as metabolic, infection, hyp/hyperglycemia, electrolyte abnormalities, cardiac sources, intracerebral event, toxicologic, neurologic, as well as others were entertained. Medical Records Attestation: I reviewed the patient's medical records. Home Medications Current Medication List: was personally reviewed by me Laboratory Data Attestation: I reviewed the patient's lab results. Result diagrams: 08/17/18 06:01 08/17/18 06:01 Lab Results 08/15/18 08/15/18 08/15/18 Range/Units 17:49 17:55 17:55 WBC 10.05 (4.8-10.8) K/uL RBC 4.37 (4.2-5.4) M/uL Hgb 13.1 (12.0-16.0) g/dL POC Hgb (12.0-16.0) g/dl Hct 40.3 (37-47) % POC Hct (37-47) % MCV 92.2 (80-100) fL MCH 30.0 (25-34) pg MCHC 32.5 (32-36) g/dL RDW Std Deviation 48.0 H (36.4-46.3) fL RDW Coeff of Corie 14.3 (11.5-14.5) % Plt Count 273 (130-400) K/uL MPV 11.0 H (7.4-10.4) fL Immature Gran % (Auto) 0.3 % Neut % (Auto) 51.9 % Lymph % (Auto) 20.3 % Sharkey % (Auto) 6.8 % Eos % (Auto) 20.0 % Baso % (Auto) 0.7 % Immature Gran # (Auto) 0.03 H (0.00-0.02) K/uL Neut # (Auto) 5.22 (1.4-6.5) K/uL Lymph # (Auto) 2.04 (1.2-3.4) K/uL Sharkey # (Auto) 0.68 H (0.11-0.59) K/uL Eos # (Auto) 2.01 H (0-0.5) K/uL Baso # (Auto) 0.07 (0-0.2) K/uL PT 10.9 (9.0-12.0) Seconds INR 1.1 (0.9-1.1) APTT 27.5 (21.0-31.0) Seconds PTT Ratio 1.0 POC Sodium (135-144) mEq/L Sodium (136-145) mmol/L POC Potassium (3.3-5.0) mEq/L Potassium (3.5-5.1) mmol/L POC Chloride (101-112) mEq/L Chloride (98-107) mmol/L Carbon Dioxide (21-32) mmol/L POC Total CO2 (24-31) mEq/l Anion Gap (3-11) POC Anion Gap (16-25) mmol/L POC BUN (7-18) mg/dl BUN (7-18) mg/dl Creatinine (0.6-1.2) mg/dl POC Creatinine (0.6-1.3) mg/dl Est Cr Clr Drug Dosing ml/min Est GFR ( Amer) Est GFR (Non-Af Amer) BUN/Creatinine Ratio (10-20) Glucose (70-99) mg/dl POC Glucose 74 (70-99) POC Glucose (other) (70-99) mg/dl Estimat Average Glucose mg/dl Hemoglobin A1c (4.5-5.6) % Calcium (8.5-10.1) mg/dl POC Ioniz Calcium Nathen (1.12-1.32) mmol/l Magnesium (1.8-2.4) mg/dl Total Bilirubin (0.2-1) mg/dl AST (15-37) U/L ALT (12-78) U/L Alkaline Phosphatase (45-117) U/L CK-MB (CK-2) (0.5-3.6) ng/ml Troponin I (0-0.045) ng/ml Total Protein (6.4-8.2) gm/dl Albumin (3.4-5.0) gm/dl Globulin (2.5-4.0) gm/dl Albumin/Globulin Ratio (0.9-2) Triglycerides (0-150) mg/dl Cholesterol (0-200) mg/dl LDL Cholesterol, Calc mg/dl VLDL Cholesterol, Calc mg/dl HDL Cholesterol mg/dl Cholesterol/HDL Ratio TSH (0.300-4.500) uIu/ml Urine Color Urine Appearance (Clear) Urine pH (4.5-7.5) Ur Specific [place] (1.000-1.030) Urine Protein (Negative) Urine Glucose (UA) (Negative) Urine Ketones (Negative) Urine Blood (Negative) Urine Nitrite (Negative) Urine Bilirubin (Negative) Urine Urobilinogen (Negative) Ur Leukocyte Esterase (Negative) 08/15/18 08/15/18 08/15/18 Range/Units 17:55 17:55 18:01 WBC (4.8-10.8) K/uL RBC (4.2-5.4) M/uL Hgb (12.0-16.0) g/dL POC Hgb 13.9 (12.0-16.0) g/dl Hct (37-47) % POC Hct 41 (37-47) % MCV (80-100) fL MCH (25-34) pg MCHC (32-36) g/dL RDW Std Deviation (36.4-46.3) fL RDW Coeff of Corie (11.5-14.5) % Plt Count (130-400) K/uL MPV (7.4-10.4) fL Immature Gran % (Auto) % Neut % (Auto) % Lymph % (Auto) % Sharkey % (Auto) % Eos % (Auto) % Baso % (Auto) % Immature Gran # (Auto) (0.00-0.02) K/uL Neut # (Auto) (1.4-6.5) K/uL Lymph # (Auto) (1.2-3.4) K/uL Sharkey # (Auto) (0.11-0.59) K/uL Eos # (Auto) (0-0.5) K/uL Baso # (Auto) (0-0.2) K/uL PT (9.0-12.0) Seconds INR (0.9-1.1) APTT (21.0-31.0) Seconds PTT Ratio POC Sodium 140 (135-144) mEq/L Sodium 137 (136-145) mmol/L POC Potassium 3.9 (3.3-5.0) mEq/L Potassium 3.8 (3.5-5.1) mmol/L POC Chloride 99 L (101-112) mEq/L Chloride 101 (98-107) mmol/L Carbon Dioxide 30 (21-32) mmol/L POC Total CO2 29 (24-31) mEq/l Anion Gap 6.0 (3-11) POC Anion Gap 17.0 (16-25) mmol/L POC BUN 24 H (7-18) mg/dl BUN 23 H (7-18) mg/dl Creatinine 0.97 (0.6-1.2) mg/dl POC Creatinine 1.0 (0.6-1.3) mg/dl Est Cr Clr Drug Dosing 40.4 ml/min Est GFR ( Amer) 60.9 Est GFR (Non-Af Amer) 52.5 BUN/Creatinine Ratio 23.9 H (10-20) Glucose 79 (70-99) mg/dl POC Glucose (70-99) POC Glucose (other) 81 (70-99) mg/dl Estimat Average Glucose mg/dl Hemoglobin A1c (4.5-5.6) % Calcium 9.5 (8.5-10.1) mg/dl POC Ioniz Calcium Nathen 1.24 (1.12-1.32) mmol/l Magnesium 2.0 (1.8-2.4) mg/dl Total Bilirubin 0.7 (0.2-1) mg/dl AST 18 (15-37) U/L ALT 24 (12-78) U/L Alkaline Phosphatase 95 (45-117) U/L CK-MB (CK-2) 3.6 (0.5-3.6) ng/ml Troponin I < 0.015 (0-0.045) ng/ml Total Protein 8.1 (6.4-8.2) gm/dl Albumin 3.3 L (3.4-5.0) gm/dl Globulin 4.8 H (2.5-4.0) gm/dl Albumin/Globulin Ratio 0.7 L (0.9-2) Triglycerides (0-150) mg/dl Cholesterol (0-200) mg/dl LDL Cholesterol, Calc mg/dl VLDL Cholesterol, Calc mg/dl HDL Cholesterol mg/dl Cholesterol/HDL Ratio TSH 1.170 (0.300-4.500) uIu/ml Urine Color Yellow Urine Appearance Clear (Clear) Urine pH 7.0 (4.5-7.5) Ur Specific [place] 1.017 (1.000-1.030) Urine Protein Negative (Negative) Urine Glucose (UA) Negative (Negative) Urine Ketones Negative (Negative) Urine Blood Negative (Negative) Urine Nitrite Negative (Negative) Urine Bilirubin Negative (Negative) Urine Urobilinogen Negative (Negative) Ur Leukocyte Esterase Negative (Negative) 08/16/18 08/16/18 08/16/18 Range/Units 06:35 06:35 06:35 WBC 8.84 (4.8-10.8) K/uL RBC 4.26 (4.2-5.4) M/uL Hgb 12.6 (12.0-16.0) g/dL POC Hgb (12.0-16.0) g/dl Hct 39.1 (37-47) % POC Hct (37-47) % MCV 91.8 (80-100) fL MCH 29.6 (25-34) pg MCHC 32.2 (32-36) g/dL RDW Std Deviation 49.0 H (36.4-46.3) fL RDW Coeff of Corie 14.5 (11.5-14.5) % Plt Count 241 (130-400) K/uL MPV 10.7 H (7.4-10.4) fL Immature Gran % (Auto) 0.3 % Neut % (Auto) 43.5 % Lymph % (Auto) 21.3 % Sharkey % (Auto) 9.2 % Eos % (Auto) 24.9 % Baso % (Auto) 0.8 % Immature Gran # (Auto) 0.03 H (0.00-0.02) K/uL Neut # (Auto) 3.85 (1.4-6.5) K/uL Lymph # (Auto) 1.88 (1.2-3.4) K/uL Sharkey # (Auto) 0.81 H (0.11-0.59) K/uL Eos # (Auto) 2.20 H (0-0.5) K/uL Baso # (Auto) 0.07 (0-0.2) K/uL PT (9.0-12.0) Seconds INR (0.9-1.1) APTT (21.0-31.0) Seconds PTT Ratio POC Sodium (135-144) mEq/L Sodium 139 (136-145) mmol/L POC Potassium (3.3-5.0) mEq/L Potassium 3.7 (3.5-5.1) mmol/L POC Chloride (101-112) mEq/L Chloride 105 (98-107) mmol/L Carbon Dioxide 28 (21-32) mmol/L POC Total CO2 (24-31) mEq/l Anion Gap 6.0 (3-11) POC Anion Gap (16-25) mmol/L POC BUN (7-18) mg/dl BUN 19 H (7-18) mg/dl Creatinine 0.95 (0.6-1.2) mg/dl POC Creatinine (0.6-1.3) mg/dl Est Cr Clr Drug Dosing 40.8 ml/min Est GFR ( Amer) 62.4 Est GFR (Non-Af Amer) 53.9 BUN/Creatinine Ratio 19.8 (10-20) Glucose 92 (70-99) mg/dl POC Glucose (70-99) POC Glucose (other) (70-99) mg/dl Estimat Average Glucose 131 mg/dl Hemoglobin A1c 6.2 H (4.5-5.6) % Calcium 8.8 (8.5-10.1) mg/dl POC Ioniz Calcium Nathen (1.12-1.32) mmol/l Magnesium (1.8-2.4) mg/dl Total Bilirubin (0.2-1) mg/dl AST (15-37) U/L ALT (12-78) U/L Alkaline Phosphatase (45-117) U/L CK-MB (CK-2) (0.5-3.6) ng/ml Troponin I (0-0.045) ng/ml Total Protein (6.4-8.2) gm/dl Albumin (3.4-5.0) gm/dl Globulin (2.5-4.0) gm/dl Albumin/Globulin Ratio (0.9-2) Triglycerides 66 (0-150) mg/dl Cholesterol 166 (0-200) mg/dl LDL Cholesterol, Calc 95 mg/dl VLDL Cholesterol, Calc 13 mg/dl HDL Cholesterol 58 mg/dl Cholesterol/HDL Ratio 3 TSH (0.300-4.500) uIu/ml Urine Color Urine Appearance (Clear) Urine pH (4.5-7.5) Ur Specific [place] (1.000-1.030) Urine Protein (Negative) Urine Glucose (UA) (Negative) Urine Ketones (Negative) Urine Blood (Negative) Urine Nitrite (Negative) Urine Bilirubin (Negative) Urine Urobilinogen (Negative) Ur Leukocyte Esterase (Negative) 08/17/18 08/17/18 Range/Units 06:01 06:01 WBC 8.77 (4.8-10.8) K/uL RBC 4.12 L (4.2-5.4) M/uL Hgb 12.1 (12.0-16.0) g/dL POC Hgb (12.0-16.0) g/dl Hct 37.7 (37-47) % POC Hct (37-47) % MCV 91.5 (80-100) fL MCH 29.4 (25-34) pg MCHC 32.1 (32-36) g/dL RDW Std Deviation 48.5 H (36.4-46.3) fL RDW Coeff of Corie 14.4 (11.5-14.5) % Plt Count 249 (130-400) K/uL MPV 10.9 H (7.4-10.4) fL Immature Gran % (Auto) 0.2 % Neut % (Auto) 34.9 % Lymph % (Auto) 27.6 % Sharkey % (Auto) 9.8 % Eos % (Auto) 26.6 % Baso % (Auto) 0.9 % Immature Gran # (Auto) 0.02 (0.00-0.02) K/uL Neut # (Auto) 3.06 (1.4-6.5) K/uL Lymph # (Auto) 2.42 (1.2-3.4) K/uL Sharkey # (Auto) 0.86 H (0.11-0.59) K/uL Eos # (Auto) 2.33 H (0-0.5) K/uL Baso # (Auto) 0.08 (0-0.2) K/uL PT (9.0-12.0) Seconds INR (0.9-1.1) APTT (21.0-31.0) Seconds PTT Ratio POC Sodium (135-144) mEq/L Sodium 140 (136-145) mmol/L POC Potassium (3.3-5.0) mEq/L Potassium 3.7 (3.5-5.1) mmol/L POC Chloride (101-112) mEq/L Chloride 107 (98-107) mmol/L Carbon Dioxide 26 (21-32) mmol/L POC Total CO2 (24-31) mEq/l Anion Gap 7.0 (3-11) POC Anion Gap (16-25) mmol/L POC BUN (7-18) mg/dl BUN 21 H (7-18) mg/dl Creatinine 0.87 (0.6-1.2) mg/dl POC Creatinine (0.6-1.3) mg/dl Est Cr Clr Drug Dosing 44.3 ml/min Est GFR ( Amer) 69.4 Est GFR (Non-Af Amer) 59.9 BUN/Creatinine Ratio 23.9 H (10-20) Glucose 91 (70-99) mg/dl POC Glucose (70-99) POC Glucose (other) (70-99) mg/dl Estimat Average Glucose mg/dl Hemoglobin A1c (4.5-5.6) % Calcium 8.8 (8.5-10.1) mg/dl POC Ioniz Calcium Nathen (1.12-1.32) mmol/l Magnesium (1.8-2.4) mg/dl Total Bilirubin (0.2-1) mg/dl AST (15-37) U/L ALT (12-78) U/L Alkaline Phosphatase (45-117) U/L CK-MB (CK-2) (0.5-3.6) ng/ml Troponin I 0.020 (0-0.045) ng/ml Total Protein (6.4-8.2) gm/dl Albumin (3.4-5.0) gm/dl Globulin (2.5-4.0) gm/dl Albumin/Globulin Ratio (0.9-2) Triglycerides (0-150) mg/dl Cholesterol (0-200) mg/dl LDL Cholesterol, Calc mg/dl VLDL Cholesterol, Calc mg/dl HDL Cholesterol mg/dl Cholesterol/HDL Ratio TSH (0.300-4.500) uIu/ml Urine Color Urine Appearance (Clear) Urine pH (4.5-7.5) Ur Specific [place] (1.000-1.030) Urine Protein (Negative) Urine Glucose (UA) (Negative) Urine Ketones (Negative) Urine Blood (Negative) Urine Nitrite (Negative) Urine Bilirubin (Negative) Urine Urobilinogen (Negative) Ur Leukocyte Esterase (Negative) Imaging Data Radiologist's Impression: Radiology results as stated below per my review and the radiologist's interpretation: CT angio head w con CLINICAL HISTORY: 88 years-old Female with Pt c/o double vision. Acutely altered mental status COMPARISON STUDY: CT head of same day TECHNIQUE: Following the IV administration of 115 cc of Optiray 320, CT angiogram of the brain was performed from the skull base to the vertex. Images are reviewed in the axial, sagittal, and coronal planes. 3-D MIPS images are created and assessed. IV contrast was administered without complication. All measurements were obtained according to NASCET criteria. A dose lowering technique was utilized adhering to the principles of ALARA. CT DOSE: 279.95 mGycm FINDINGS: CT ANGIOGRAM OF THE BRAIN: The imaged bilateral internal carotid arteries are patent. Moderate to severe calcified plaque about the cavernous, clinoid and supraclinoid segments. Additionally, calcified plaque about the left carotid terminus, image 46 series 2 results in approximately 60% luminal narrowing. The bilateral anterior and middle cerebral arteries are also patent. The vertebrobasilar system and posterior cerebral arteries are widely patent. Calcified plaque about the V4 segment left vertebral artery on image 12 series 2 results in less than 50% luminal narrowing. There is no aneurysm, high-grade stenosis, or proximal branch occlusion identified. Dural sinuses appear patent. Paranasal sinus disease redemonstrated. IMPRESSION: 1. No aneurysm, dissection, or proximal branch occlusion. 2. Moderate to severe calcified plaque about the distal internal carotid arteries. Calcified plaque at the left carotid terminus results in approximately 60% luminal narrowing. The above report was generated using voice recognition software. It may contain grammatical, syntax or spelling errors. Electronically signed by: Ferny Montero M.D. 08/15/2018 6:[address] head/brain wo con CLINICAL HISTORY: 88 years-old Female with Stroke evaluation . Acute strokelike symptoms TECHNIQUE: Multiple axial CT images of the head were obtained without contrast. A dose lowering technique was utilized adhering to the principles of ALARA. CT DOSE: 638.56 mGycm COMPARISON: CT head 05/28/2014. FINDINGS: No acute intracranial hemorrhage, midline shift, intracranial mass, hydrocephalu s, territorial ischemia or abnormal extra-axial collection. Age-related involutional changes with moderate to extensive white matter hypodensities suggestive of chronic microvascular ischemic changes. Mild encephalomalacia about the right gracia radiata and external capsule distribution is new from comparison suggesting remote infarction. The calvarium is intact. Mastoid air cells are clear. Moderate to severe mucosal thickening about the visualized left maxillary sinus with moderate mucosal thickening of the ethmoid air cells. Soft tissues and orbits appear unremarkable. IMPRESSION: No acute intracranial abnormality. The above report was generated using voice recognition software. It may contain grammatical, syntax or spelling errors. Electronically signed by: Ferny Montero M.D. 08/15/2018 6:32 PM ECG Data Attestation: I personally reviewed and interpreted this ECG as follows: Indication: weakness Rate (beats per minute): 60 Rhythm: normal sinus Findings: + other (normal EKG); no ST depression and no ST elevation Blood Pressure Blood Pressure Findings: Elevated blood pressure Blood Pressure Disposition: further management by hospitalist MDM Narrative This is an 88-year-old female who presents emergency department complaining of TIA-like symptoms. Patient's blood pressure is also grossly elevated. Due to the fact that she was symptomatic she was given IV blood pressure medication. The patient was discussed with the hospitalist service who agreed to admit the patient. Patient and family were in agreement with the treatment plan. Impression & Plan Hypertensive urgency Critical Care Time I have personally spent greater than 30 minutes of critical care time in the direct management of this patient. This includes bedside care, interpretation of diagnostic studies, and testing, discussion with consultants, patient, and family members, and other required patient management activities. This 30 minutes is in excess of all separately billable procedures. Discharge Plan Visit Data *Final* Discharge Date/Time: 08/15/18 22:34 Chief Complaint: TIA Symptoms Stated Complaint: possible mini stroke ED Provider: Dylan Verdin Discharge Problem: Hypertensive urgency Patient Disposition: Admitted As Inpatient Discharge Instructions Interventions: ED Discharge Assessment Last Done: 08/15/18 22:34 The scribe's documentation has been prepared under my direction and personally reviewed by me in its entirety. I confirm that the note above accurately reflects all work, treatment, procedures, and medical decision making performed by me.
[2018-08-18 07:17] LABS: BUN Creatinine Ratio 17.5 (10-20); Calcium 8.4 mg/dl (8.5-10.1); Creatinine Clr Calc Pharmacy 40.5 ml/min; Est GFR (African American) 61.6; Est GFR (Non-African American) 53.2; Potassium 3.9 mmol/L (3.5-5.1)
[2018-08-18] MEDS: DOXYCYCLINE HYCLATE 100 MG CAP PO SCH (08:40)
[2018-08-18] MEDS: METOPROLOL SUCC 25MG EXT REL TAB PO SCH (08:41)
[2018-08-18] MEDS: ASPIRIN 81 MG ECTAB PO SCH (08:41)
[2018-08-18] MEDS: CLOPIDOGREL BISULFATE 75 MG TAB PO SCH (08:41)
[2018-08-18] MEDS: HEPARIN SOD 5,000 UNIT/0.5 ML VIAL SQ SCH (08:41)
[2018-08-18] MEDS: ATORVASTATIN 40 MG TAB PO SCH (08:42)
--- NOTE | 2018-08-18 09:53 | Consultation ---
Date of Consultation August 18, 2018 Assessment & Plan (1) Carotid stenosis, bilateral: Pt also seen by Dr Johnson. Appears to be asymptomatic at this time. Pt also with unknown significance of hilar lymph nodes. Recommend eval for those prior to consideration for CEA. Recommend follow up in a few weeks to discuss possible CEA. Recommend ASA and plavix. Patient was seen, examined, and chart reviewed. Agree with exam and treatment plan of the Vascular PA. Thank you very much for letting us participate in the care of this patient. Present on Admission?: Yes History of Present Illness Reason for Consultation: Bl ICA stenosis, possible TIA Attending Physician: Arden Fabian MD History of Present Illness 88 yo f with hx of aortic stenosis, CKD III, HTN, hyperlipiedemia, BCC, lyme disease(treated), CAD, admitted with episode of difficulty reading and comprehen ding for short time, seen in consultation today for Bl ICA stenosis. Pt states she had a similar episode about 1 yr ago and was told she had TIA at that time. Began checking her carotids with US around that time, pt states most recent check was about 60% stenosis on left. Denies amaurosis, unilateral extremity weakness or numbness, difficulty speaking or swallowing. Denies WARE, fever, chills, chest pain, SOB, MCCANN, abd pain, N/V, rest pain, claudication, other complaints. ' CTA neck demonstrates BL 80-85% stenosis of ICA. Also noted on CT scan are multiple hilar lymph nodes and possible lung lesion. Allergies Allergy/AdvReac Type Severity Reaction Status Date / Time No Known Allergies Allergy Unverified 08/15/18 18:11 Home Medications Home Medications Medication Instructions Recorded Confirmed Type aspirin [Aspirin Low Dose] 81 mg PO BID 08/15/18 08/15/18 History calcium carbonate-vitamin D3 1 tab PO DAILY 08/15/18 08/15/18 History [Calcium 600 + D(3)] lovastatin 40 mg PO QPM 08/15/18 08/15/18 History metoprolol succinate 25 mg PO QAM 08/15/18 08/15/18 History Patient History Medical History Basal cell carcinoma (Resolved) Lyme disease (Resolved) CKD (chronic kidney disease), stage III (Chronic) HTN (hypertension) (Chronic) Carotid bruit (Chronic) Hyperlipidemia (Chronic) Carotid stenosis, bilateral (Chronic) Stroke (Chronic 05/29/14) Hx TIA/stroke w/o resid Headache (Resolved) Family History Other CAD (coronary artery disease) Social History Preferred Language: Maltese Beliefs That Will Affect Care: Quaker marital status: / Current Living Situation: Family Current Living Situation Comment: alone in-law suite in son's home ([place]) current occupational status: retired Other Information That Helps Us Care for You: No Feels Safe at Home: Yes Safety Concerns: Feels Safe At This Time Smoking Status: Never smoker Hx Alcohol Use: Yes Hx Substance Use: No Review of Systems Constitutional: no fever, no chills, no sweats, no fatigue, no malaise and no weight loss Eyes: no blind spots and no problem reported Ear, Nose, Mouth, Throat: no hearing loss and no sore throat Respiratory: no cough, no dyspnea, no dyspnea on exertion and no hemoptysis Cardiovascular: no chest pain, no palpitations, no syncope, no claudication and no problem reported Gastrointestinal: no abdominal pain, no early satiety, no nausea, no vomiting, no cramping, no change in bowel habits, no diarrhea/loose stools and no blood in stools Musculoskeletal: no back pain, no joint pain, no swelling and no muscle weakness Integumentary: no rash, no non-healing lesions, no skin ulcer, no wounds and no erythema Neurologic: no localized weakness, no generalized weakness, no paralysis, no loss of sensation, no tingling, no numbness, no paresthesia, no seizure-like activity, no syncope, no headache(s) and no confusion difficulty reading/comprehending. Psychiatric: as per Subjective / HPI Hematologic / Lymphatic: no easy bleeding, no easy bruising, no coagulopathy, no night sweats and no unexplained weight loss Physical Exam Vital Signs (Past 24 Hours): Last Vital Signs Temp 36.4 C L 08/18/18 07:28 Pulse 63 08/18/18 07:33 Resp 17 08/18/18 07:28 BP 166/76 H 08/18/18 07:28 Pulse Ox 97 08/18/18 07:28 Constitutional: WD/WN, vitals as above well developed, well nourished, healthy appearing, well groomed, cooperative and comfortable; not in distress Eyes: PERRL, conjunctivae normal, anicteric sclerae EOM intact bilaterally ENMT: external ear and nose normal, oropharynx normal Nose: no nasal discharge Neck: trachea midline, no thyromegaly no tracheal deviation, no neck crep itus and neck nontender Respiratory: normal respiratory effort, lungs clear to auscultation able to speak in complete sentences; does not use accessory muscles, no cough and no audible wheezes Auscultation: lungs clear to auscultation bilaterally and + diminished lung sounds; no rhonchi and no wheezes Cardiovascular: RRR, no murmur, no edema Heart Sounds: + murmur; no gallop Vessels: + carotid bruit (BL vs transmission of murmur), normal peripheral pul ses, femoral pulses present, posterior tibial pulses present, dorsalis pedis pulses present, brachial pulses present and radial pulses present; no femoral bruit and no renal bruit Extremities: normal capillary refill; no edema Chest (Breasts): Chest: normal inspection of chest Gastrointestinal (Abdomen): normal bowel sounds, soft, nontender, no hepatosplenomegaly Inspection/Auscultation: abdomen normal to inspection and normal bowel sounds; abdomen not distended Percussion/Palpation: abdomen soft; abdomen nontender, no guarding, abdomen not rigid and no abdominal mass Musculoskeletal: no cyanosis or clubbing, extremities motor strength 5/5 Head/Neck/Chest: normocephalic, head atraumatic and neck supple Extremities: extremities normal to inspection; full ROM of extremities, + abnormal strength, normal strength, no chronic stasis changes, no clubbing, no amputation noted, no lower leg abnormality and no foot abnormality Skin: no rashes, warm and dry normal turgor; no rashes, no lesions, no ulcers, no induration, no erythema, no eschar and no excoriations Trauma: no hematoma and no puncture Neurologic: moves all extremities and awake; no focal motor deficits and not confused Speech / Cognition: no expressive aphasia and no receptive aphasia Motor/Sensory: no tremor, no pronator drift and no sensory deficit Cranial Nerves: EOM intact bilaterally, normal facial strength and tongue midline Psychiatric: Orientation: alert, oriented x 3, oriented to person, oriented to place, oriented to time and cooperative Apperance: appropriately dressed, appropriately groomed and appeared stated age; not disheveled Affect: euthymic affect Thought Process: goal directed thought process, linear/logical thought process and clear/coherent thought process Cognition: recent memory grossly intact, remote memory grossly intact, attention grossly intact and language grossly intact Estimated Intelligence: average estimated intelligence Lymphatic: no lymphedema
--- NOTE | 2018-08-18 10:01 | Cardiology Progress Note ---
Date of Service August 18, 2018 Assessment & Plan (1) Chronic ischemic heart disease: Resting 2D transthoracic echocardiogram demonstrates a small basal posterior wall motion abnormality consistent with underlying ischemic heart disease. Her ejection fraction is preserved. No signs/symptoms of congestive heart failure. When prior 2D echocardiogram reviewed from 2013 there is no significant change. Patient notes chronic dyspnea on exertion without chest discomfort. Function capacity unchanged. Medical management recommended at this time. Continue beta-lorena. Lovastatin discontinued in favor of high intensity statin therapy, atorvastatin 40 mg daily. Add lisinopril 5 mg daily. Repeat basic metabolic panel in 1 week. Outpatient pharmacologic stress testing recommended for further risk stratification if patient planning carotid endarterectomy. I will schedule outpatient cardiology follow-up in 2-4 weeks. (2) Confusion: Symptoms have resolved. Possible TIA vs. hypertensive urgency on admission. Blood pressure elevated over the past 24 hours. Appreciate neurology input. (3) Carotid stenosis, bilateral: Appreciate vascular surgery consultation. (4) HTN (hypertension): Uncontrolled, add lisinopril 5 mg daily. Repeat basic metabolic panel in 1 week. (5) Dyslipidemia, goal LDL below 100: Lovastatin discontinued in favor of atorvastatin 40 mg daily. (6) Cervical adenopathy: Management per internal medicine and oncology. (7) Aortic stenosis, mild: Subjective Patient seen and examined at the bedside. Feeling well from a cardiovascular perspective. No dysrhythmias on telemetry. Denies chest pain or shortness of breath. No recurrent cognitive difficulties. Evaluated by vascular surgery. Tentatively considering elective carotid endarterectomy. Review of Systems All systems reviewed & are unremarkable except as noted in HPI & below Physical Exam Vital Signs (Past 24 Hours): Last Vital Signs Temp 36.4 C L 08/18/18 07:28 Pulse 63 08/18/18 07:33 Resp 17 08/18/18 07:28 BP 166/76 H 08/18/18 07:28 Pulse Ox 97 08/18/18 07:28 Physical Exam: General: NAD, AAO x3, well nourished. Obese. HEENT: Normocephalic. Atraumatic. Conjunctiva pink, no scleral icterus. Neck:2/4 B/L carotid bruits, the carotid upstrokes are brisk. No JVD. No HJR Heart: Regular normal S-1 and S-2 no S-3 or S-4 gallop. 2/6 low pitched mid peaking systolic ejection murmur heard best at the right second intercostal space. PMI is not displaced. No RV heave. Lungs: Clear bilateral without rales , rhonchi, or wheeze. Abdomen: Normal bowel sounds. Mildly distended. Nontender. No masses or organomegaly. No abdominal bruits. Extremities: 1-2+ bilateral pedal and pretibial edema. No clubbing, cyanosis. Pulses: radial=2/4, Dorsalis pedis =2/4, posterior tibial=2/4. Neuro: Cranial nerves grossly intact. No focal motor deficit.
[2018-08-18] MEDS ORDERED: LISINOPRIL 5 MG TAB PO SCH (10:15)
--- NOTE | 2018-08-18 12:11 | Hospitalist Progress Note ---
Date of Service August 18, 2018 Assessment & Plan (1) Confusion: Stroke like symptoms: Possible Alexia or 2/2 Carotid.A stenosis H/O CVA in 2013 H/O carotid stenosis --MRI Brain: No evidence for an acute ischemic event. Atrophy and considerable chronic small vessel change. Right central meningioma immediately superior to the cribriform plate measuring 2.0 x 1.2 cm. Left maxillary and ethmoid sinusitis. --Neck CTA: 85% stenosis left internal carotid artery. 80% stenosis left carotid bifurcation. 85% stenosis origin right internal carotid artery. 80% stenosis right carotid bifurcation. Incidental note is made of nodularity involving the pulmonary apices bilaterally combined with superior mediastinal adenopathy. Additional moderate adenopathy involving the cervical chains bilaterally. A neoplastic process must be considered with probable associated pathologic adenopathy. --Head CTA: No aneurysm, dissection, or proximal branch occlusion. Moderate to severe calcified plaque about the distal internal carotid arteries. Calcified plaque at the left carotid terminus results in approximately 60% luminal narrowing. --ECHO: EF: 65-70%; base posterior wall mildly hypokinetic, Mild , Mild TR -- Continue Aspirin, statin --Plavix added --Appreciate Neurology Input --PT/OT --Consulted Vascular Surgery: Needs FU as outpatient for possible CEA --Needs Biopsy of Lymph nodes and to R/O malignancy prior to consideration for surgery Meningioma Mediastinal and Cervical Adenopathy Incidental findings on CT --CT chest/Abd:Multiple enlarged lymph nodes about the chest, predominately in the mediastinal and hilar distributions, in addition to prominent periaortic and mildly enlarged iliac chain lymph nodes are concerning for underlying lymphoproliferative disorder. Multiple irregular subcentimeter pulmonary nodules within an upper lung zone predominant distribution measuring up to approximately 8 mm are noted in addition to patchy left basilar consolidation and mild bilateral bronchial wall thickening. These findings are suggestive of an infectious or inflammatory pneumonitis with metastatic disease not excluded. Attention at follow-up recommended. 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 --Needs biopsy to confirm -- Needs FU with CT surgery as outpatient for lymph node biopsy --Needs repeat MRI brain in 6 months --Continue Doxycycline for possible pneumonitis Day #2 Chronic Ischemic Heart disease: Wall motion abnormality noted on ECHO Patient denies any chest pain/discomfort, SOB Troponin Negative EKG:no acute signs of Ischemia Appreciate Cardiology Input Continue Aspirin, Beta Yue Lovastatin changed to lipitor --Added lisnopril --pharmacologic stress test as outpatient (2) Hypertensive urgency: continue metoprolol Hydralazine PRN (3) Hyperlipidemia: continue statin (4) CKD (chronic kidney disease), stage III: Baseline Cr: ~1.2 monitor renal functions avoid nephrotoxic agents when possible DVT Px: Heparin SQ Code Status Full Code Subjective Patient is seen and examined at bedside Doing well Offers no complaints Discussed with Vascular surgery today No recurrence of confusion Denies weakness, change in vision, speech problems Also denies chest pain, SOB, dizziness No other complaints Discussed with family in detail Physical Exam Vital Signs (Past 24 Hours): Last Vital Signs Temp 36.9 C 08/18/18 11:58 Pulse 77 08/18/18 11:58 Resp 18 08/18/18 11:58 BP 161/67 H 08/18/18 11:58 Pulse Ox 90 08/18/18 11:58 Physical Exam: Physical Exam: Vitals signs as noted above General Appearance:Moderately built and nourished, no apparent distress Head: normocephalic, Atraumatic Eyes: normal inspection, EOMI Neck: supple, Trachea midline Respiratory/Chest: Normal breath sounds, CTA Cardiovascular: S1, S2, + murmur Abdomen/GI:Soft, Non tender, Bowel sounds present Extremities/Musculoskelatal:normal inspection, no edema Neurologic/Psych:AAOX3, grossly no focal neurological deficits Skin: normal color, warm
[2018-08-18] MEDS ORDERED: STROKE PATIENT DISCHARGE STA (12:25)
--- NOTE | 2018-08-18 12:25 | Discharge Summary ---
Date of Service August 18, 2018 Admission HPI Per Admitting Provider Pt is 88 y/o F with PMH HTN, dyslipidemia, CKD III, basal cell CA, carotid stenosis, CVA in 2013 presented to ER with c/o confusion this morning. Pt states wasn't able to sleep this morning and she woke up and started reading around 4:30 am. As she was reading had onset of trouble comprehending the words and reports wasn't able to read as it confused her. She states stopped and tried to rest and then tried reading again with same symptoms. Pt states she eventually fell asleep and woke up with resolution of symptoms. No further symptoms. She was by herself, so is unsure of any speech problems. She denies any WARE, blurred vision, diplopia, vision loss, dizziness, weakness, paresthesias. Pt states for past 1.5 weeks with non-productive cough, post nasal drip. She was taking Mucinex with some relief. Denies SOB, CP, fever/chills. Patient with reported history memory problems and last year started Namenda. Patient states stopped taking it. Patient admits has been missing medications over the past month or so secondary to illness and recent of her . Patient lives on lower [place] of [facility]. Son states that he has noticed some recent increased confusion with patient and her medications and is looking into having pt use a pill box and reports is willing to start helping pt with her medications. Denies diaphoresis, N/V/D/C, syncope, neck pain, CP, SOB, orthopnea, palpitations, sore throat, choking, otalgia, abdominal pain, paresthesias, extremity weakness, extremity edema, rashes, urinary symptoms. Hx echo: 08/2017: EF: 55-59%, grade 1 diastolic dysfunction, aortic valve mildly calcified, mild aortic valve stenosis, mild tricuspid regurgitation. History carotid Doppler 08/2017: Right carotid artery: 50-69% stenosis, left carotid artery: 69% stenosis Admission Exam Per Admitting Provider General: no distress, WDWN Head: normocephalic, atraumatic Eyes: PERRL, EOM's intact, conjunctiva non-injected, anicteric ENT: normal inspection external ears, nose, mucous membranes moist Neck: supple, trachea midline Lungs: clear, no respiratory distress, no wheezing/rhonchi/rales CV: RRR, no murmur, no JVD, no pretibial edema Abd: normal BS, soft, non-tender Ext: no cyanosis, no calf tenderness Neuro: A&O to person, place, year, no focal deficits noted, tongue midline, no pronator drift, strength equal bilaterally, normal affect Skin: warm, dry Principal Diagnosis Discharge Information Discharge Diagnosis Stroke like symptoms Meningioma Lymphadenopathy Chronic Ischemic Heart disease Discharge Goals Decrease discomfort,Improve disease control, Improve function Discharge Activity Limitations Resume your previous activity Discharge Data Allergies Allergy/AdvReac Type Severity Reaction Status Date / Time No Known Allergies Allergy Unverified 08/15/18 18:11 Consultations 08/15/18 19:03 ED Decision to Admit Stat 08/15/18 23:04 Consult Case Management - Discharge Planning Routine Consult Neurology Routine 08/17/18 08:00 Consult Cardiology Routine 08/18/18 07:00 Consult Vascular Surgery Routine Procedures Performed Head CTA: 1. No aneurysm, dissection, or proximal branch occlusion. 2. Moderate to severe calcified plaque about the distal internal carotid arteries. Calcified plaque at the left carotid terminus results in approximately 60% luminal narrowing. CT head: No acute intracranial abnormality. Neck CTA: 1. 85% stenosis left internal carotid artery.. 2. 80% stenosis left carotid bifurcation. 3. 85% stenosis origin right internal carotid artery. 4. 80% stenosis right carotid bifurcation. 5. Incidental note is made of nodularity involving the pulmonary apices bilaterally combined with superior mediastinal adenopathy. 6. Additional moderate adenopathy involving the cervical chains bilaterally. 7. A neoplastic process must be considered with probable associated pathologic adenopathy. Brain MRI: 1. No evidence for an acute ischemic event. 2. Atrophy and considerable chronic small vessel change. 3. Right central meningioma immediately superior to the cribriform plate measuring 2.0 x 1.2 cm. 4. Left maxillary and ethmoid sinusitis. CT ABD: 1. Multiple enlarged lymph nodes about the chest, predominately in the mediastinal and hilar distributions, in addition to prominent periaortic and mildly enlarged iliac chain lymph nodes are concerning for underlying lymphoproliferative disorder. 2. Multiple irregular subcentimeter pulmonary nodules within an upper lung zone predominant distribution measuring up to approximately 8 mm are noted in addition to patchy left basilar consolidation and mild bilateral bronchial wall thickening. These findings are suggestive of an infectious or inflammatory pneumonitis with metastatic disease not excluded. Attention at follow-up recommended. 3. No bowel obstruction or focal bowel wall thickening. 4. 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 5. Additional findings as above. CT Chest: 1. Multiple enlarged lymph nodes about the chest, predominately in the mediastinal and hilar distributions, in addition to prominent periaortic and mildly enlarged iliac chain lymph nodes are concerning for underlying lymphoproliferative disorder. 2. Multiple irregular subcentimeter pulmonary nodules within an upper lung zone predominant distribution measuring up to approximately 8 mm are noted in addition to patchy left basilar consolidation and mild bilateral bronchial wall thickening. These findings are suggestive of an infectious or inflammatory p neumonitis with metastatic disease not excluded. Attention at follow-up recommended. 3. No bowel obstruction or focal bowel wall thickening. 4. 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 Ordered Studies 08/15/18 17:22 CT angio head w con Stat CT head/brain wo con Stat 08/16/18 09:17 CT angio neck with con Routine 08/16/18 23:04 MR brain wo/w con Routine US carotid doppler BI Routine 08/17/18 07:00 CT abd pelvis IV con only Routine CT chest w con Routine Hospital Course (1) Confusion: Stroke like symptoms: Possible Alexia or 2/2 Carotid.A stenosis H/O CVA in 2013 H/O carotid stenosis --MRI Brain: No evidence for an acute ischemic event. Atrophy and considerable chronic small vessel change. Right central meningioma immediately superior to the cribriform plate measuring 2.0 x 1.2 cm. Left maxillary and ethmoid sinusitis. --Neck CTA: 85% stenosis left internal carotid artery. 80% stenosis left carotid bifurcation. 85% stenosis origin right internal carotid artery. 80% stenosis right carotid bifurcation. Incidental note is made of nodularity involving the pulmonary apices bilaterally combined with superior mediastinal adenopathy. Additional moderate adenopathy involving the cervical chains bilaterally. A neoplastic process must be considered with probable associated pathologic adenopathy. --Head CTA: No aneurysm, dissection, or proximal branch occlusion. Moderate to severe calcified plaque about the distal internal carotid arteries. Calcified plaque at the left carotid terminus results in approximately 60% luminal narrowing. --ECHO: EF: 65-70%; base posterior wall mildly hypokinetic, Mild , Mild TR -- Continue Aspirin, statin --Plavix added --Appreciate Neurology Input --PT/OT --Consulted Vascular Surgery: Needs FU as outpatient for possible CEA --Needs Biopsy of Lymph nodes and to R/O malignancy prior to consideration for surgery Meningioma Mediastinal and Cervical Adenopathy Incidental findings on CT --CT chest/Abd:Multiple enlarged lymph nodes about the chest, predominately in the mediastinal and hilar distributions, in addition to prominent periaortic and mildly enlarged iliac chain lymph nodes are concerning for underlying lympho proliferative disorder. Multiple irregular subcentimeter pulmonary nodules within an upper lung zone predominant distribution measuring up to approximately 8 mm are noted in addition to patchy left basilar consolidation and mild bilateral bronchial wall thickening. These findings are suggestive of an infectious or inflammatory pneumonitis with metastatic disease not excluded. Attention at follow-up recommended. 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 --Needs biopsy to confirm -- Needs FU with CT surgery as outpatient for lymph node biopsy --Needs repeat MRI brain in 6 months --Continue Doxycycline for possible pneumonitis Day #2 Chronic Ischemic Heart disease: Wall motion abnormality noted on ECHO Patient denies any chest pain/discomfort, SOB Troponin Negative EKG:no acute signs of Ischemia Appreciate Cardiology Input Continue Aspirin, Beta Yue Lovastatin changed to lipitor --Added lisnopril --pharmacologic stress test as outpatient (2) Hypertensive urgency: continue metoprolol Hydralazine PRN (3) Hyperlipidemia: continue statin (4) CKD (chronic kidney disease), stage III: Baseline Cr: ~1.2 monitor renal functions avoid nephrotoxic agents when possible DVT Px: Heparin SQ Code Status Full Code Total Time Total Time Spent Total Time Spent (In Minutes): 45 minutes Total Time Includes: Examination of the Patient, Discharge Planning, Medication Reconciliation, Communication With Other Providers and Other Discharge Plan Discharge Items Patient Disposition: Home - Self-Care Reason For Visit: CONFUSION Discharge Diagnosis: Stroke like symptoms Meningioma Lymphadenopathy Chronic Ischemic Heart disease Discharge Goals: Decrease discomfort, Improve disease control and Improve function Activity: Resume your previous activity Exercise/Sports: Gradually increase as tolerated Non-emergency contact: Primary Care Provider, Surgeon, White Mixing Operator and Neurologist Call non-emergency contact if: you have any medication questions, your symptoms worsen, your pain is not controlled, your pain is worsening, your pain is unusual for you, your pain is concerning for you and you have a fever Follow-up/Referrals: Kaylynn Arevalo [Primary Care Provider] - Diet: Heart Healthy [facility] Provider Instructions: Follow up with your PCP on August 21, 2018 at 1:00pm Follow up with your Neurologist Saumya HOGAN at [facility] on September 15, 2018 at 1:30pm Follow up with your White Mixing Operator Dr.Thomas Millan in 2-4 weeks as advised Follow up with Vascular Surgery Dr.Eugene Johnson as outpatient Get Blood test (Basic Metabolic Panel) in 1 week and follow up with your Primary care Physician Get Biopsy of your Lymph nodes by Cardiothoracic Surgeon as outpatient Get repeat MRI brain in 6 months to monitor Meningioma noted on Imaging Complete the antibiotic course as prescribed for possible infection (Pneumonitis) noted on your CT chest cscan Seek immediate medical attention if your symptoms reoccur or worsen Risk Factors for Stroke: You can reduce your chances of stroke by working with your medical provider to adopt a healthy lifestyle. Some specific ways to lower your chance of stroke are: * If you are a smoker, now is the time to stop smoking cigarettes * If you are diabetic, improve the control of your blood sugars * Avoid excessive amounts of alcohol * Control high blood pressure * Lose weight if you are overweight * Be sure to lead an active lifestyle * Eat a healthy diet low in salt, cholesterol and fat You should know about other risk factors for stroke that you are unable to control. These include: * Age 55 years or older * Male gender * Certain racial groups: , or / * Family History of Stroke, Mini stroke or Heart Attack * Sickle Cell Disease Follow Up: It is important for you to keep your follow up appointments with your medical provider. Who to Call and When: Medical Emergencies: Call 911 immediately if you experience any of the following warning signs and symptoms of Stroke: * Sudden numbness or weakness of the face, arm or leg, especially on one side of the body * Sudden confusion, trouble speaking or understanding * Sudden trouble seeing in one or both eyes * Sudden trouble walking, dizziness, loss of balance or coordination * Sudden severe headache with no cause Do not delay calling 911 if you experience any warning signs or symptoms of a stroke. Delay in seeking medical attention may affect what treatments can be given to you. . Prescriptions: New atorvastatin 40 mg Tablet 40 mg PO QAM 30 Days Qty: 30 RF: 1 doxycycline hyclate 100 mg Capsule 100 mg PO BID 6 Days Qty: 12 RF: 0 clopidogrel 75 mg Tablet 75 mg PO QAM 30 Days Qty: 30 RF: 1 lisinopril [Zestril] 5 mg Tablet 5 mg PO QAM 30 Days Qty: 30 RF: 0 Continued aspirin [Aspirin Low Dose] 81 mg Tablet,Delayed Release (Dr/Ec) 81 mg PO BID RF: 0 metoprolol succinate 25 mg tablet extended release 24 hr 25 mg PO QAM RF: 0 calcium carbonate-vitamin D3 [Calcium 600 + D(3)] 600 mg(1,500mg) -400 unit Tablet 1 tab PO DAILY RF: 0 Discontinued lovastatin 40 mg tablet 40 mg PO QPM RF: 0 Stand-Alone Forms: [facility] Discharge Orders: Discharge Order (Routine); Ordered 08/18/18 Ordered By: Arden Fabian Admission Data Admit Date/Time: 08/15/18 20:22 Attending Provider: Arden Fabian Admit Provider: Andrew Ramirez Primary Care Provider: Kaylynn Arevalo Other Providers: Andrew Ramirez ; Tasha Daugherty ; Ulises Millan ; Panchito Johnson Service: Telemetry Other Interventions: Discharge Summary Assessment (RN) Last Done: 08/18/18 12:38 Pending Studies at Discharge: No DC Date/Time DO NOT enter until pt leaves facility: 08/18/18 13:00
== END 2018-08-18 13:00 | disposition home or self-care (01) | DRG 67 ==
LOC: ED 16:40 → 2N 20:22
DX: R59.0 Localized enlarged lymph nodes; R41.0 Disorientation, unspecified; Z79.899 Other long term (current) drug therapy; I12.9 Hypertensive chronic kidney disease with stage 1 through stage 4 chronic kidney disease, or unspecified chronic kidney disease; D32.9 Benign neoplasm of meninges, unspecified; R48.0 Dyslexia and alexia; I35.0 Nonrheumatic aortic (valve) stenosis; Z79.82 Long term (current) use of aspirin; N18.3 Chronic kidney disease, stage 3 (moderate); Z86.73 Personal history of transient ischemic attack (TIA), and cerebral infarction without residual deficits; I65.23 Occlusion and stenosis of bilateral carotid arteries; E78.5 Hyperlipidemia, unspecified; I16.0 Hypertensive urgency; J18.9 Pneumonia, unspecified organism